=== PATIENT | male | born 1950 | race African-American/Black ===

== ENCOUNTER 2018-09-02 17:27 | Observation (INO) ==
[2018-09-02] MEDS ORDERED: ASPIRIN PO ONE (17:40)
[2018-09-02] MEDS ORDERED: SOLU-MEDROL IV ONE (17:41)
[2018-09-02] MEDS ORDERED: DUONEB (A & A) INH ONE (17:50)
[2018-09-02 17:58] LABS: BASO# 0.01 X1000 (0.0-0.2); BASO% 0.1 % (0.0-0.8); EOS% 1.2 % (0.0-10.0); HEMATOCRIT 42.8 % (42.0-52.0); HEMOGLOBIN 14.2 g/dL (14.0-18.0); IMM GRAN# 0.02 X1000 (0.0-0.04); IMM GRAN% 0.2 % (0.0-0.5); LYMPH% 38.6 % (20.5-51.1); MCH 32.1 PG (27-31); MCHC 33.2 g/dL (33-37); MCV 96.8 FL (81-99); MONO# 0.77 X1000 (0.11-0.59); MONO% 9.6 % (1.7-9.3); MPV 9.9 FL (7.4-10.4); NEUT# 4.04 X1000 (1.4-6.5); NEUT% 50.3 % (42.2-75.2); PLT 176 X1000 (130-400); RBC 4.42 XMIL (4.7-6.1); RDW 16.1 % (11.5-14.5); WBC 8.04 X1000 (4.8-10.8)
--- NOTE | 2018-09-02 18:00 | PROVIDER DOCUMENTATION ---
This chart was entered by Catarina Bedoya Scribe, acting as scribe for Salvatore Monaco MD. HPI-Chest Pain - General Source: patient, family - History of Present Illness-CP Location: reports: other (left side) Chest Pain Radiation: reports: no radiation Quality of Pain: reports: aching Severity in ED: mild Onset/Duration: 3 days ago Timing: still present Context/Activities at Onset: reports: light activity Modifying Factors: improves with: nothing Associated Symptoms: reports: shortness of breath Similar Symptoms Previously?: Yes Recently Seen Here or By Another Healthcare Provider: Yes <Salvatore Monaco - Last Filed: 09/02/18 18:44> <Micha Munguia - Last Filed: 09/02/18 22:14> - General Chief Complaint: Chest Pain Stated Complaint: BP HIGH Time Seen by Provider: 09/02/18 17:38 Allergies/Adverse Reactions: Patient Allergies Allergy/AdvReac Type Severity Reaction Status Date / Time No Known Allergies Allergy Verified 09/02/18 18:38 Home Medications: Home Medication List Medication Instructions Recorded Confirmed Last Taken Type Aspirin 325 mg PO DAILY #0 tablet 10/23/12 12/31/17 03/18/16 11:00 Rx Carvedilol [Coreg] 6.25 mg PO BID #0 tablet 10/23/12 12/31/17 03/18/16 11:00 Rx Isosorbide Mononitrate E.r. [Imdur] 15 mg PO DAILY #30 tablet 10/23/12 12/31/17 03/18/16 11:00 Rx Potassium Chloride 10 meq PO DAILY #30 tablet.er 10/23/12 12/31/17 03/18/16 11: 00 Rx Albuterol 2.5MG/Ipratrop 0.5MG 2 puff INH BID 11/11/14 12/31/17 03/18/16 11:00 History [Duoneb (A & A)] Furosemide [Lasix] 80 mg PO DAILY 02/21/16 12/31/17 03/18/16 11:00 History Ciprofloxacin HCl [Cipro] 500 mg PO BID #14 tab 12/31/17 Unknown Rx Polyethylene Glycol 3350 [Miralax] 17 gm PO DAILY #90 powd.pack 08/07/18 Unknown Rx - History of Present Illness-CP Nature of Presenting Problem: Patient is a 68 year old male who presents to the ED with left side chest pain. Patient's daughter states chest pain started 3 days ago. Patient also states shortness of breath and wheezing. Patient states having 4 breathing treatments with no relief of symptoms. Patient states history of COPD and AR with 6 stents. (Catarina Bedoya) Patient is a 68 year old male who presents to the ED with left side chest pain. Patient's daughter states chest pain started 3 days ago. Patient also states shortness of breath and wheezing. Patient states having 4 breathing treatments with no relief of symptoms. Patient states history of COPD and AR with 6 stents. (Salvatore Monaco) Review of Systems - Adult - REVIEW OF SYSTEMS - ADULT Constitutional: reports: no symptoms reported Eyes: reports: no symptoms reported Ears, Nose, Mouth & Throat: reports: no symptoms reported Cardiovascular: reports: chest pain. denies: heart murmur, irregular heart rate Respiratory: reports: shortness of breath, wheezing. denies: cough Gastrointestinal: reports: no symptoms reported Genitourinary: reports: no symptoms reported Musculoskeletal: reports: no symptoms reported Integumentary: reports: no symptoms reported Neurological: reports: no symptoms reported Psychiatric: reports: no symptoms reported Endocrine: reports: no symptoms reported Hematologic/Lymphatic: reports: no symptoms reported Allergic/Immunologic: reports: no symptoms reported All Other Systems: Reviewed and Negative <Salvatore Monaco - Last Filed: 09/02/18 18:44> Past History - Adult - PAST MEDICAL HISTORY-ADULT Review of Records: reports: Nursing Assessment Review, Medications Reviewed, Social history reviewed & non-contributory. Major Childhood Illnesses: reports: denies history Cardiovascular: reports: cardiac disease, CHF, HTN, hyperlipidemia, AR (x3) Respiratory: reports: denies history Gastrointestinal: reports: denies history Obstetrical/Gynecological: reports: denies history Genitourinary: reports: kidney stones Musculoskeletal: reports: denies history Neurological: reports: CVA Psychiatric: reports: anxiety Endocrine/Immune: reports: thyroid disorder Other Conditions: reports: denies history - PRIOR SURGERIES/PROCEDURES Surgical/Procedure History: reports: cholecystectomy, cardiac stent (x6) - IMMUNIZATION STATUS Childhood Immunizations: See Nurse Assessment Flu Vaccine: See Nurse Assessment - FAMILY HISTORY Family History: reviewed, not pertinent - SOCIAL HISTORY Smoking: cigarettes, less than 1 pack/day Provider spent 3-5 mins advising pt. on dangers of tobacco.: Discussed manners to quit use, and f/u contacts for add'l counseling. Substance Use: denies Living Situation: family <Salvatore Monaco - Last Filed: 09/02/18 18:44> Physical Exam-General - PHYSICAL EXAM-ADULT Initial Vital Signs Reviewed: Yes - CONSTITUTIONAL General Appearance: alert, no apparent distress - HEAD, EARS, NOSE, MOUTH & THROAT HENMT: normal ENT inspection - NECK Neck: normal inspection - RESPIRATORY Respiratory: chest non-tender, lungs clear, normal breath sounds - CARDIOVASCULAR Cardiovascular: normal peripheral pulses, regular rate, rhythm - GASTROINTESTINAL (ABDOMEN) Abdominal Exam: normal bowel sounds, non tender, soft - MUSCULOSKELETAL Extremity: non-tender, normal inspection - SKIN Integumentary: normal color, normal turgor, warm/dry - NEUROLOGIC Neurologic: grossly normal - PSYCHIATRIC Psych/Mental Status: normal mood/affect, oriented x 3 <Salvatore Monaco - Last Filed: 09/02/18 18:44> Progress - PLAN OF CARE/RESULTS Result Diagrams: 09/02/18 17:50 - REASSESSMENT Reassessment #1 Time Reassessed: 18:45 Status: improving (SYMPTOMS IMPROVED. LUNGS STILL DIFFUSE BILAT WHEEZING) - EKG 1 Time of EKG reading by physician:: 17:52 EKG Read and Signed by:: Salvatore Monaco EKG Interpretation (*Must complete 3 of following elements*): Abnormal ( moderate voltage criteria for LVH, may be normal variant.) Rate: 73 Rhythm: normal sinus rhythm QRS: RBB NC Interval: normal Comments: left anterior fascicular block; bifascicular block; - CHANGE OF SHIFT REPORT (ED Provider) Report Given and Care Transferred to:: DR MUNGUIA Time of Transfer: 19:00 Items Pending: Labs, XRAY Results, CT/MRI Results <Salvatore Monaco - Last Filed: 09/02/18 18:44> - PLAN OF CARE/RESULTS Result Diagrams: 09/02/18 17:50 09/02/18 18:48 - CONSULTS/PCP/HOSPITALIST Notification #1 *Consult/PCP/Hospitalist*: Dr Ortega Time Discussed: 22:14 Consult Disposition: Admit <EzraMicha Brijesh - Last Filed: 09/02/18 22:14> - PLAN OF CARE/RESULTS Progress/Plan/Lab Results: Vital Signs - 8 hr 09/02/18 17:33 09/02/18 18:13 09/02/18 18:41 Temperature 98 F Pulse Rate 77 76 76 Respiratory Rate 18 18 20 Blood Pressure 197/102 173/101 O2 Sat by Pulse Oximetry 96 96 94 L Laboratory Results - last 24 hr 09/02/18 09/02/18 09/02/18 17:50 17:50 17:50 WBC 8.04 RBC 4.42 L Hgb 14.2 Hct 42.8 MCV 96.8 MCH 32.1 H MCHC 33.2 RDW Std Deviation 16.1 H Plt Count 176 MPV 9.9 Immature Gran % (Auto) 0.2 Neut % (Auto) 50.3 Lymph % (Auto) 38.6 [place] % (Auto) 9.6 H Eos % (Auto) 1.2 Baso % (Auto) 0.1 Immature Gran # (Auto) 0.02 Neut # (Auto) 4.04 Lymph # (Auto) 3.10 [place] # (Auto) 0.77 H Eos # (Auto) 0.10 Baso # (Auto) 0.01 PT 12.4 INR 0.88 D-Dimer, Quantitative 1.18 H Sodium Potassium Chloride Carbon Dioxide Anion Gap BUN Creatinine Estimated GFR/1.73 m2 BUN/Creatinine Ratio Glucose Calculated Osmolality Calcium Magnesium Total Bilirubin AST ALT Alkaline Phosphatase Creatine Kinase Troponin T [id number]-[id number]-[id number] Pept Total Protein Albumin Globulin Albumin/Globulin Ratio 09/02/18 09/02/18 09/02/18 18:48 18:48 18:48 WBC RBC Hgb Hct MCV MCH MCHC RDW Std Deviation Plt Count MPV Immature Gran % (Auto) Neut % (Auto) Lymph % (Auto) [place] % (Auto) Eos % (Auto) Baso % (Auto) Immature Gran # (Auto) Neut # (Auto) Lymph # (Auto) [place] # (Auto) Eos # (Auto) Baso # (Auto) PT INR D-Dimer, Quantitative Sodium 137 Potassium 4.3 Chloride 103 Carbon Dioxide 23 L Anion Gap 12 BUN 14 Creatinine 1.0 Estimated GFR/1.73 m2 > 60 BUN/Creatinine Ratio 14 Glucose 93 Calculated Osmolality 274 Calcium 9.4 Magnesium 1.9 Total Bilirubin < 0.15 L AST 12 ALT 10 Alkaline Phosphatase 63 Creatine Kinase 75 Troponin T < 0.010 Rcv-[id number]-Kxpgmzlymih Pept Total Protein 6.8 Albumin 3.8 Globulin 3.0 Albumin/Globulin Ratio 1.0 09/02/18 18:48 WBC RBC Hgb Hct MCV MCH MCHC RDW Std Deviation Plt Count MPV Immature Gran % (Auto) Neut % (Auto) Lymph % (Auto) [place] % (Auto) Eos % (Auto) Baso % (Auto) Immature Gran # (Auto) Neut # (Auto) Lymph # (Auto) [place] # (Auto) Eos # (Auto) Baso # (Auto) PT INR D-Dimer, Quantitative Sodium Potassium Chloride Carbon Dioxide Anion Gap BUN Creatinine Estimated GFR/1.73 m2 BUN/Creatinine Ratio Glucose Calculated Osmolality Calcium Magnesium Total Bilirubin AST ALT Alkaline Phosphatase Creatine Kinase Troponin T [id number]-Lljaajjjzgh Pept 300 H Total Protein Albumin Globulin Albumin/Globulin Ratio Orders Category Date Time Status Cardiac Monitoring DIRECTED Care 09/02/18 17:38 Active Oxygen Therapy- ED Nursing DIRECTED Care 09/02/18 18:42 Active CHEST-PORTABLE [RAD] Stat Exams 09/02/18 17:38 Completed CTA [CT ANGIOGRM PULMONARY ARTERIES] [CT] Stat Exams 09/02/18 18:37 Completed CBC WITH DIFF [HEME] Stat Lab 09/02/18 17:50 Completed CK PROFILE [SP CHEM] Stat Lab 09/02/18 18:48 Completed COMPREHENSIVE METABOLIC PANEL [CHEM] Stat Lab 09/02/18 18:48 Completed D-DIMER [COAG] Stat Lab 09/02/18 17:50 Completed MAGNESIUM [CHEM] Stat Lab 09/02/18 18:48 Completed PRO B-NATRIURETIC PEPTIDE Stat Lab 09/02/18 18:48 Completed PROTIME WITH INR [COAG] Stat Lab 09/02/18 17:50 Completed TROPONIN T Stat Lab 09/02/18 18:48 Completed Albuterol 2.5MG/Ipratrop 0.5MG [Duoneb (A & A)] Med 09/02/18 17:50 Discontinued 3 ml INH NOW ONE Aspirin Med 09/02/18 17:40 Discontinued 325 mg PO NOW ONE Methylprednisolone Sod Succ [Solu-Medrol] Med 09/02/18 17:41 Discontinued 125 mg IV STAT ONE Aerosol Treatments Routine Oth 09/02/18 17:50 Completed Aerosol Treatments Stat Oth 09/02/18 17:50 Completed EKG [EKG] Stat Ther 09/02/18 17:42 Draft Departure - Departure Date of Disposition Decision: 09/02/18 Time of Disposition Decision: 19:00 Certified Medical Emergency: Emergent - Critical Care Note This patient required my direct & personal management of CC.: No <Salvatore Monaco - Last Filed: 09/02/18 18:44> - Departure Certified Medical Emergency: Emergent - Critical Care Note This patient required my direct & personal management of CC.: No <Micha Munguia - Last Filed: 09/02/18 22:14> - Departure DIAGNOSIS: COPD with exacerbation, Chest pain Disposition: ADMITTED INPATIENT 09 Condition: Stable Referrals and Follow-Ups: Shahzad Fernando MD [Primary Care Provider] - Attestation - Physician/ CAMMY Attestation Patient care was provided by Advanced Practice Provider:: No The physician spent face to face time with patient:: Yes Advanced Practice Provider documentation review:: Supervising physician onsite and consulted in the evaluation and care of this patient. The physician did have a face to face encounter with the patient. <Salvatore Monaco - Last Filed: 09/02/18 18:44> - Physician/ CAMMY Attestation Patient care was provided by Advanced Practice Provider:: No The physician spent face to face time with patient:: Yes Advanced Practice Provider documentation review:: Supervising physician onsite and consulted in the evaluation and care of this patient. The physician did have a face to face encounter with the patient. <Micha Munguia - Last Filed: 09/02/18 22:14> This chart was documented by the indicated scribe, (Catarina Bedoya Scribe) and accurately reflects the services I performed and decisions made by , Salvatore Monaco MD, as attested by the provider's signature.
--- NOTE | 2018-09-02 18:01 | EKG Report ---
Test Performed on : 09/02/2018 5:50:04 PM Test Reason : CHEST PAIN Blood Pressure : / mmHG Vent. Rate : 075 BPM Atrial Rate : 075 BPM P-R Int : 134 ms QRS Dur : 136 ms QT Int : 418 ms P-R-T Axes : 085 -84 037 degrees QTc Int : 466 ms Normal sinus rhythm. Right bundle branch block Left anterior fascicular block Bifascicular block Moderate voltage criteria for LVH, may be normal variant Abnormal ECG When compared with ECG of 31-DEC-2017 16:28, (Unconfirmed) Minimal criteria for Septal infarct are no longer present T wave inversion no longer evident in Anterior leads Unconfirmed Result
[2018-09-02 18:18] LABS: INR 0.88; PROTIME 12.4 Seconds (11.0-16.0)
[2018-09-02 19:36] LABS: AGAP 12; ALBUMIN 3.8 g/dL (3.5-5.0); ALKALINE PHOSPHATASE 63 U/L (32-122); BUN 14 mg/dL (8-22); CALCIUM 9.4 mg/dL (8.8-10.2); CHLORIDE 103 mmol/L (98-107); COSMO 274; ESTIMATED GFR > 60; GLUCOSE 93 mg/dL (70-104); GOT 12 U/L (10-34); GPT 10 U/L (10-44); MAGNESIUM 1.9 mg/dL (1.5-2.7); POTASSIUM 4.3 mmol/L (3.5-5.1); SODIUM 137 mmol/L (136-145); TCO2 23 mmol/L (25-35); TOTAL BILIRUBIN < 0.15 mg/dL (0.20-1.00); TOTAL PROTEIN 6.8 g/dL (6.3-8.3)
--- NOTE | 2018-09-02 19:43 | Diag Imaging Result Doc PS360 ---
EXAM: CHEST-PORTABLE INDICATION: chest pain TECHNIQUE: One view COMPARISON: 03/16/2018 FINDINGS: There is mild increased opacity at the lung bases, more prominent on the right. This could represent developing infiltrates but may also be due to overlying soft tissue attenuation. Otherwise, the lungs are grossly clear. There is no discrete pleural fluid collection or pneumothorax. There are calcified mediastinal lymph nodes indicating prior granulomatous disease. The cardiomediastinal silhouette and central vasculature are grossly unremarkable, otherwise. IMPRESSION: Vague opacity at the lung bases suggesting questionable mild infiltrate. Electronically signed by Kenneth Gonzales 09/02/2018 7:41 PM
--- NOTE | 2018-09-02 20:39 | Diag Imaging Result Doc PS360 ---
EXAM: CT ANGIOGRM PULMONARY ARTERIES INDICATION: SOB TECHNIQUE: This exam was performed using automated exposure control, adjustment of mA or kV according to patient size, and/or use of iterative reconstruction technique. Thin section axial images and 3-D MIPS were obtained. COMPARISON: None. FINDINGS: There is no evidence of pulmonary embolism. There is patchy aortic atherosclerotic calcification. There is no evidence of aortic aneurysm or dissection. There are calcified mediastinal and hilar lymph nodes indicating prior granulomatous disease. There is no cardiomegaly. There is fairly mild pulmonary emphysema. There is mild subsegmental atelectasis and/or scarring at the lung bases. The lungs are grossly clear, otherwise. There is no pleural fluid collection and no pneumothorax. Limited views of the upper abdomen are essentially unremarkable. IMPRESSION: 1.Fairly mild pulmonary emphysema. 2.Mild subsegmental atelectasis and/or scarring at the lung bases. 3.No evidence of pulmonary embolism or other definite acute pathology. Electronically signed by Kenneth Gonzales 09/02/2018 8:36 PM
[2018-09-02] MEDS ORDERED: CATAPRES PO ONE (22:15)
[2018-09-02] MEDS ORDERED: NITROGLYCERIN SL PRN (22:23)
[2018-09-02] MEDS ORDERED: CATAPRES PO PRN (22:24)
[2018-09-02] MEDS ORDERED: ZOFRAN IV PRN (23:19)
[2018-09-02] MEDS: DUONEB (A & A) INH SCH (23:29)
[2018-09-02] MEDS: LOVENOX SUBQ SCH (23:30)
[2018-09-02] MEDS: APRESOLINE IV PRN (23:55)
[2018-09-03] MEDS: PRILOSEC PO SCH (06:02)
--- NOTE | 2018-09-03 06:09 | EKG Report ---
Test Performed on : 09/03/2018 05:57:20 AM Test Reason : chest pain Blood Pressure : / mmHG Vent. Rate : 080 BPM Atrial Rate : 080 BPM P-R Int : 148 ms QRS Dur : 138 ms QT Int : 418 ms P-R-T Axes : 087 -86 -26 degrees QTc Int : 482 ms Normal sinus rhythm. Right bundle branch block Left anterior fascicular block Bifascicular block Moderate voltage criteria for LVH, may be normal variant Cannot rule out Septal infarct , age undetermined Abnormal ECG When compared with ECG of 02-SEP-2018 17:50, (Unconfirmed) T wave inversion now evident in Inferior leads Nonspecific T wave abnormality, worse in Lateral leads Confirmed by Theo Waters MD ([id number]) on 09/12/2018 9:52:37 AM
[2018-09-03 07:14] LABS: HEMATOCRIT 45.1 % (42.0-52.0); HEMOGLOBIN 14.9 g/dL (14.0-18.0); IMM GRAN# 0.02 X1000 (0.0-0.04); IMM GRAN% 0.4 % (0.0-0.5); LYMPH# 1.32 X1000 (1.2-3.4); LYMPH% 25.4 % (20.5-51.1); MCH 31.4 PG (27-31); MCV 94.9 FL (81-99); MONO# 0.08 X1000 (0.11-0.59); MONO% 1.5 % (1.7-9.3); MPV 9.7 FL (7.4-10.4); NEUT# 3.77 X1000 (1.4-6.5); NEUT% 72.7 % (42.2-75.2); PLT 161 X1000 (130-400); RBC 4.75 XMIL (4.7-6.1); RDW 15.6 % (11.5-14.5); WBC 5.19 X1000 (4.8-10.8)
[2018-09-03 07:24] LABS: AGAP 12; BUN 15 mg/dL (8-22); CALCIUM 10.1 mg/dL (8.8-10.2); CHLORIDE 101 mmol/L (98-107); COSMO 279; CREATININE 0.9 mg/dL (0.7-1.2); ESTIMATED GFR > 60; GLUCOSE 183 mg/dL (70-104); POTASSIUM 4.3 mmol/L (3.5-5.1); SODIUM 137 mmol/L (136-145); TCO2 24 mmol/L (25-35)
--- NOTE | 2018-09-03 07:37 | Diag Imaging Result Doc PS360 ---
EXAM: CHEST-2 VIEWS HISTORY: sob, pna TECHNIQUE: Chest two views COMPARISON: 09/02/2018 FINDINGS: The lungs are hyperexpanded. Increased AP diameter to the chest. The vasculature is less distended. No cardiomegaly. No consolidation. No pleural effusions. The calcified mediastinal nodes. IMPRESSION: Emphysema. No pneumonia. Electronically signed by Sanjiv De La Rosa 09/03/2018 7:35 AM
[2018-09-03] MEDS: DUONEB (A & A) INH SCH ×5 (07:49→22:56)
[2018-09-03] MEDS: MIRALAX PO SCH (09:30)
[2018-09-03] MEDS: IMDUR PO SCH (09:31)
[2018-09-03] MEDS: ASPIRIN PO SCH (09:31)
[2018-09-03] MEDS: KLOR-CON PO SCH (09:31)
[2018-09-03] MEDS: LASIX PO SCH (09:31)
[2018-09-03] MEDS: COREG PO SCH ×2 (09:32→21:17)
[2018-09-03] MEDS: APRESOLINE IV PRN (10:19)
--- NOTE | 2018-09-03 11:38 | HISTORY AND PHYSICAL ---
CHIEF COMPLAINT: Chest pain and shortness of breath. HISTORY OF PRESENT ILLNESS: This is a 62-year-old gentleman with a history of CAD, COPD, and diastolic heart failure. He presents to the emergency room complaining of about 3- 1/2 days of chest pain. He describes this as an aching-type pain just right behind his left breast. He had some associated shortness of breath that was a little more than his normal breathing, that came on with any activity, and it did improve somewhat with rest, but not much. He denied any syncope, dizziness, palpitations, fevers, or chills. PAST MEDICAL HISTORY: Diastolic congestive heart failure with an EF of 60% back in 2013, COPD, CAD with previous coronary events, having multiple stents. He is followed in Cardiology in [place]. Hypothyroid, hypertension. PAST SURGICAL HISTORY: Multiple PTCA, kidney stone removal, and cholecystectomy. SOCIAL HISTORY: He denies alcohol or illicit drug use. He does smoke about half a pack cigarettes a day. ALLERGIES: No known drug allergies. HOME MEDICATIONS: A list will be obtained by the nursing staff and once reviewed, will restart as appropriate. REVIEW OF SYSTEMS: The patient pertinent positives stated in HPI. He denied any syncope, dizziness, any palpitations, a productive cough, any fever, chills, any night sweats, any nausea, vomiting, diarrhea, constipation, black or bloody vomitus or stools, hematuria, dysuria, frequency, or urgency. PHYSICAL EXAMINATION: GENERAL: This is a 68-year-old gentleman, who is sitting up in the bed in no distress. VITAL SIGNS: Blood pressure is 149/83 with a heart rate of 84, respirations 20, temperature is 97.7 oral with O2 saturation that are 96% to 98% on 2 L nasal cannula. EYES: Pupils equal, round, react to light. EOMs are intact. Sclerae are anicteric. HENT: Head is normocephalic, atraumatic. Mucous membranes are moist. NECK: Supple. Trachea midline. CARDIOVASCULAR: Regular rate and rhythm. S1, S2 appreciated. No murmurs. He has no lower extremity edema with peripheral pulses palpable x4 extremities. PULMONARY: Breath sounds with wheezes scattered throughout. Chest rises and falls symmetrically with respiration. He has no increased work of breathing. GASTROINTESTINAL: Abdomen is soft, nontender, and nondistended with bowel sounds in all 4 quadrants. NEUROLOGIC: He is alert and oriented x3. SKIN: Warm and dry. LABS: WBC is 8 with hemoglobin 14.2, hematocrit 42.8, platelets of 176,000. D-dimer is 1.18. Sodium is 137, potassium 4.3, BUN 14, creatinine 1 with a glucose of 93. Troponins were negative on multiple occasions with a proBNP of 300. Chest x-ray revealed hyperexpanded lungs with increased AP diameter of the chest. Vasculature is less congested. With compared to 09/02/2018 x- ray, no consolidation, no pleural effusions, and no pneumonia. EKG reveals sinus rhythm with a right bundle-branch block and left anterior-fascicular block at a rate of 80. ASSESSMENT AND PLAN: 1. Chest pain. He has ruled out by enzymes. Will continue his home medications. We will continue telemetry. 2. Chronic obstructive pulmonary disease acute exacerbation. We will continue DuoNeb q.4 hours and q.2 hours p.r.n. Will give steroids to taper. Will continue home medications. 3. Elevated D-dimer. CTA pulmonary was negative for pulmonary embolus. We will check a lower extremity Doppler. 4. History of congestive heart failure, diastolic. He does not appear to be in exacerbation. We will continue to monitor. Continue his home medications. 5. History of hypertension. Blood pressures were initially in the 190s/100. They have decreased to 140s to 190s over 80s to 90s. We will continue his home medications and monitor. 6. Hypothyroid. We will check a TSH. 7. Further treatments pending hospital course. Dictated by DINA Toledo for Makayla Babcock MD This chart was documented by, DINA Toledo and accurately reflects the services performed, treatment plan and medical decisions as attested by the providers signature Makayla Babcock MD. cc: DINA Toledo MD
--- NOTE | 2018-09-03 13:01 | Extremity Venous Study ---
EXAM: Venous U/S Bilateral Legs HISTORY: elevated ddimer TECHNIQUE: Cho scale, color Doppler, and duplex evaluation was performed. COMPARISON: None. FINDINGS: The deep veins of the bilateral lower extremities demonstrate appropriate compressibility and augmentation. No intraluminal thrombus is visualized. There is no evidence for DVT. The superficial veins appear patent. IMPRESSION: No evidence for deep venous thrombosis bilateral lower extremities. Electronically signed by Hayley Ruiz 09/03/2018 12:59 PM
--- NOTE | 2018-09-03 14:29 | HISTORY AND PHYSICAL ---
ADDENDUM: The patient was seen by me [id number], and I fully agree with the assessment and plan of my nurse practitioner, Lydia Diallo. This is a 68-year-old gentleman who has been admitted with some chest discomfort along with acute COPD exacerbation, chronic diastolic congestive heart failure, and dyslipidemia. The patient will be kept here, and we will rule out acute myocardial ischemic event with serial cardiac enzymes. He will get bronchodilators via nebulization, and we will also give him enoxaparin 40 mg subcutaneously for thromboembolism prophylaxis. We are going to continue his routine home medications and follow the hospital course. cc: Makayla Babcock MD
[2018-09-03] MEDS ORDERED: NORCO-5 PO ONE (17:05)
[2018-09-03] MEDS: LOVENOX SUBQ SCH (23:00)
[2018-09-04 06:13] LABS: BASO# 0.01 X1000 (0.0-0.2); BASO% 0.1 % (0.0-0.8); EOS# 0.01 X1000 (0.0-0.7); EOS% 0.1 % (0.0-10.0); HEMATOCRIT 42.5 % (42.0-52.0); HEMOGLOBIN 14.1 g/dL (14.0-18.0); IMM GRAN# 0.04 X1000 (0.0-0.04); IMM GRAN% 0.4 % (0.0-0.5); LYMPH# 1.86 X1000 (1.2-3.4); LYMPH% 17.7 % (20.5-51.1); MCH 31.1 PG (27-31); MCHC 33.2 g/dL (33-37); MCV 93.6 FL (81-99); MONO# 1.09 X1000 (0.11-0.59); MONO% 10.4 % (1.7-9.3); MPV 10.1 FL (7.4-10.4); NEUT# 7.51 X1000 (1.4-6.5); NEUT% 71.3 % (42.2-75.2); PLT 164 X1000 (130-400); RBC 4.54 XMIL (4.7-6.1); RDW 15.7 % (11.5-14.5); WBC 10.52 X1000 (4.8-10.8)
[2018-09-04] MEDS: PRILOSEC PO SCH (06:17)
[2018-09-04 06:34] LABS: AGAP 13; BUN 24 mg/dL (8-22); CALCIUM 9.7 mg/dL (8.8-10.2); CHLORIDE 101 mmol/L (98-107); COSMO 279; CREATININE 0.9 mg/dL (0.7-1.2); ESTIMATED GFR > 60; GLUCOSE 119 mg/dL (70-104); SODIUM 137 mmol/L (136-145); TCO2 24 mmol/L (25-35)
[2018-09-04] MEDS: DUONEB (A & A) INH SCH ×5 (07:46→22:52)
[2018-09-04] MEDS: ASPIRIN PO SCH (09:03)
[2018-09-04] MEDS: COREG PO SCH ×2 (09:03→21:46)
[2018-09-04] MEDS: COZAAR PO SCH (09:03)
[2018-09-04] MEDS: IMDUR PO SCH (09:03)
[2018-09-04] MEDS: KLOR-CON PO SCH (09:03)
[2018-09-04] MEDS: LASIX PO SCH (09:03)
[2018-09-04] MEDS: MIRALAX PO SCH (09:04)
--- NOTE | 2018-09-04 09:54 | ECHO REPORT ---
ORDER DATE: 09/02/2018 INTERPRETING PHYSICIAN: Yony Ferraro MD INDICATION: A 68-year-old male with chest pain. M-MODE MEASUREMENTS: Left ventricle end diastole: 4.7 cm. Left ventricle end systole: 3.1 cm. Posterior wall: 1.7 cm. Interventricular septum: 1.7 cm. Left atrium: 3.9 cm. Aortic root: 3.3 cm. SUMMARY OF 2-DIMENSIONAL IMAGIN. Left ventricular function is normal. Ejection fraction is estimated at 60%. No wall motion abnormality is noted. 2. The right ventricle is normal. 3. The aortic valve looks normal. Color flow mapping is unremarkable. 4. The mitral valve shows a mild degree of regurgitation. 5. Pulse wave Doppler of mitral inflow shows reversal of the E and the A ratio. Ratio is 0.5. 6. Tissue Doppler of septal and lateral mitral annulus averages 4 cm. 7. There is impaired left ventricular relaxation. 8. The tricuspid valve shows a mild degree of regurgitation. 9. Pulmonary pressure is estimated at 42 mmHg. 10.The pulmonic valve looks normal. Color flow mapping is unremarkable. 13.There is no pericardial effusion and no sign of thrombus. SUMMARY: Clinical correlation is recommended. cc: MD Anurag Pinto MD
--- NOTE | 2018-09-04 11:58 | PROGRESS NOTE ---
DATE: 09/04/2018 SUBJECTIVE: The patient denies having any acute complaints this morning and feels well. He is no longer having any more chest pains. OBJECTIVE: Vital Signs: Temperature 98.1, pulse 68 per minute, respiratory rate 20 per minute, blood pressure 177/93, pulse ox 97% on 2 L of oxygen. Cardiovascular System: First and second heart sounds are audible without any murmurs or gallops. Respiratory System: No respiratory distress noted. Bilateral lung air entry is good without any rales or rhonchi. Gastrointestinal: Abdomen is soft and nondistended. Normal bowel sounds are present. DIAGNOSTIC DATA: CBC and basic metabolic panel both are nondiagnostic. IMPRESSION: 1. Chest pain with negative cardiac enzymes. 2. Chronic obstructive pulmonary disease exacerbation. 3. Uncontrolled hypertension. 4. Chronic diastolic congestive heart failure that is stable. 5. History of coronary artery disease and dyslipidemia. PLAN: The patient has been having uncontrolled hypertension because of which I am going to start him on losartan 50 mg daily. He presented with chest pain but his enzymes have been negative and acute myocardial ischemic event has been ruled out. Furthermore, he has not been having any more chest pains. It seems that his chest discomfort was primarily secondary to chronic obstructive pulmonary disease exacerbation that has now improved. We will continue with bronchodilators via nebulization. His coronary artery disease and chronic diastolic congestive heart failure along with dyslipidemia have been stable, and we are going to continue with his routine medications. Further recommendations will be given as per hospital course. DISPOSITION: Disposition will be most likely in the next 1 to 2 days if his blood pressure gets better and he remains asymptomatic. cc: Makayla Babcock MD
[2018-09-04] MEDS: LOVENOX SUBQ SCH (23:12)
[2018-09-05] MEDS: PRILOSEC PO SCH (06:21)
[2018-09-05 07:10] LABS: BASO# 0.01 X1000 (0.0-0.2); BASO% 0.1 % (0.0-0.8); EOS# 0.03 X1000 (0.0-0.7); EOS% 0.3 % (0.0-10.0); HEMATOCRIT 43.5 % (42.0-52.0); HEMOGLOBIN 14.4 g/dL (14.0-18.0); IMM GRAN# 0.03 X1000 (0.0-0.04); IMM GRAN% 0.3 % (0.0-0.5); LYMPH# 2.66 X1000 (1.2-3.4); LYMPH% 25.8 % (20.5-51.1); MCH 31.3 PG (27-31); MCHC 33.1 g/dL (33-37); MCV 94.6 FL (81-99); MONO# 1.37 X1000 (0.11-0.59); MONO% 13.3 % (1.7-9.3); MPV 10.1 FL (7.4-10.4); NEUT# 6.22 X1000 (1.4-6.5); NEUT% 60.2 % (42.2-75.2); PLT 162 X1000 (130-400); RDW 15.8 % (11.5-14.5); WBC 10.32 X1000 (4.8-10.8)
[2018-09-05] MEDS: DUONEB (A & A) INH SCH ×2 (07:45→11:06)
[2018-09-05 07:54] LABS: AGAP 12; BUN 28 mg/dL (8-22); CALCIUM 9.6 mg/dL (8.8-10.2); CHLORIDE 101 mmol/L (98-107); COSMO 280; ESTIMATED GFR > 60; GLUCOSE 104 mg/dL (70-104); SODIUM 137 mmol/L (136-145); TCO2 24 mmol/L (25-35)
[2018-09-05] MEDS: LASIX PO SCH (09:09)
[2018-09-05] MEDS: MIRALAX PO SCH (09:09)
[2018-09-05] MEDS: IMDUR PO SCH (09:09)
[2018-09-05] MEDS: COREG PO SCH (09:09)
[2018-09-05] MEDS: KLOR-CON PO SCH (09:10)
[2018-09-05] MEDS: ASPIRIN PO SCH (09:10)
[2018-09-05] MEDS: COZAAR PO SCH (09:10)
[2018-09-05 11:34] VITALS: BP 157/88
[2018-09-05] MEDS ORDERED: PRAVACHOL PO SCH (21:00)
--- NOTE | 2018-09-05 21:09 | DISCHARGE SUMMARY ---
ADMISSION DATE: 09/02/2018 DISCHARGE DATE: 09/05/2018 DISCHARGE DIAGNOSES: 1. Acute chronic obstructive pulmonary disease exacerbation. 2. Atypical chest pain with acute myocardial ischemia ruled out. 3. Chronic diastolic congestive heart failure. 4. History of coronary artery disease. 5. Dyslipidemia. 6. Hypertension. HOSPITAL COURSE: Mr. Lopez is a 68-year-old gentleman who was admitted to the hospital after he presented to the emergency department with 3-1/2 days of chest pain. He was diagnosed as having acute COPD exacerbation and was admitted to the hospital for further care. He had negative cardiac enzymes and therefore acute myocardial ischemia was ruled out. He did receive bronchodilators via nebulization and also got steroids with which his condition improved. He also was continued with his routine home medications and losartan 50 mg daily was added to his medicines because of uncontrolled blood pressure. His overall condition has improved and therefore he is going to be discharged home today. DISCHARGE MEDICATIONS: 1. Aspirin 325 mg orally once daily. 2. Albuterol and Atrovent nebulization treatments 4 times a day. 3. Pravastatin 40 mg orally once daily at bedtime. 4. Furosemide 80 mg orally once daily in the morning. 5. Potassium chloride 10 mg orally once daily. 6. Imdur 30 mg orally once daily. 7. Losartan 50 mg orally once daily. 8. Coreg 6.25 mg orally twice daily. 9. MiraLAX 17 g orally once daily as directed. 10. Omeprazole 40 mg orally twice daily. FOLLOWUP: He will follow up with his PCP in approximately one week. CONDITION: Stable. DISPOSITION: Home. cc: Makayla Babcock MD
== END 2018-09-05 14:22 | disposition home or self-care (01) | DRG 191 ==
LOC: P.ED 17:27 → SUATTDRO 23:29 → P.MEDSURG 23:29 → INTOOBSV 23:29
PROVIDERS: ATTEND Internal Medicine
CPT/HCPCS: 71010; 71020; 71045; 71046; 71275; 80048; 80053; 82550; 82948; 83735; 83880; 84443; 84484; 85025; 85379; 85610; 87040; 87070; 87205; 93005; 93010; 93306; 93970; 94640; 94761; 96372; 96374; 97116; 97161; 99285; A9270; J0360; J1650; J2930; Q9967; XXXXX

== ENCOUNTER 2019-08-11 06:48 | Inpatient (IN) ==
[2019-08-11] MEDS ORDERED: DUONEB (A & A) INH ONE (07:23)
[2019-08-11] MEDS ORDERED: SOLU-MEDROL IV ONE (07:23)
--- NOTE | 2019-08-11 08:04 | Diag Imaging Result Doc PS360 ---
EXAM: CHEST-1 VIEW 08/11/2019 HISTORY: possible pneumonia TECHNIQUE: Erect AP portable at 0752 COMMENT: There is no evidence of acute cardiac or pulmonary disease. Compared to 04/24/2019 there has been no significant change. IMPRESSION: No evidence of acute disease. Electronically signed by John Mcleod 08/11/2019 8:01 AM
--- NOTE | 2019-08-11 08:05 | EKG Report ---
Test Performed on : 08/11/2019 07:45:27 AM Test Reason : sob Blood Pressure : / mmHG Vent. Rate : 084 BPM Atrial Rate : 084 BPM P-R Int : 162 ms QRS Dur : 138 ms QT Int : 410 ms P-R-T Axes : 066 -83 009 degrees QTc Int : 484 ms Normal sinus rhythm. Right bundle branch block Left anterior fascicular block Bifascicular block Abnormal ECG When compared with ECG of 25-APR-2019 01:15, Nonspecific T wave abnormality has replaced inverted T waves in Inferior leads Nonspecific T wave abnormality, improved in Lateral leads Unconfirmed Result
[2019-08-11 08:06] LABS: BASO# 0.02 X1000 (0.0-0.2); BASO% 0.3 % (0.0-0.8); EOS# 0.08 X1000 (0.0-0.7); EOS% 1.2 % (0.0-10.0); HEMATOCRIT 39.8 % (42.0-52.0); HEMOGLOBIN 12.6 g/dL (14.0-18.0); LYMPH# 3.08 X1000 (1.2-3.4); LYMPH% 45.1 % (20.5-51.1); MCH 31.7 PG (27-31); MCHC 31.7 g/dL (33-37); MONO# 0.65 X1000 (0.11-0.59); MONO% 9.5 % (1.7-9.3); MPV 9.9 FL (7.4-10.4); NEUT% 43.9 % (42.2-75.2); PLT 181 X1000 (130-400); RBC 3.98 XMIL (4.7-6.1); RDW 16.2 % (11.5-14.5); WBC 6.83 X1000 (4.8-10.8)
[2019-08-11 08:37] LABS: AGAP 14; ALB/GLOB RATIO 1.4; ALKALINE PHOSPHATASE 53 U/L (32-122); BUN 20 mg/dL (8-22); CALCIUM 9.4 mg/dL (8.8-10.2); CHLORIDE 97 mmol/L (98-107); COSMO 280; CREATININE 1.4 mg/dL (0.7-1.2); ESTIMATED GFR > 60; GLUCOSE 98 mg/dL (70-104); GOT 12 U/L (10-34); GPT 8 U/L (10-44); SODIUM 139 mmol/L (136-145); TCO2 28 mmol/L (25-35); TOTAL BILIRUBIN 0.22 mg/dL (0.20-1.00); TOTAL PROTEIN 6.8 g/dL (6.3-8.3)
--- NOTE | 2019-08-11 09:28 | PROVIDER DOCUMENTATION ---
HPI-Respiratory General - General Chief Complaint: General Adult Stated Complaint: COPD Time Seen by Provider: 08/11/19 06:57 Source: patient, family Allergies/Adverse Reactions: Patient Allergies Allergy/AdvReac Type Severity Reaction Status Date / Time No Known Allergies Allergy Verified 08/11/19 07:02 Home Medications: Home Medication List Medication Instructions Recorded Confirmed Last Taken Type Potassium Chloride 10 meq PO DAILY #30 tablet.er 10/23/12 08/11/19 08/10/19 09:00 Rx Furosemide [Lasix] 80 mg PO HS 02/21/16 08/11/19 08/10/19 20:00 History Albuterol 2.5MG/Ipratrop 0.5MG 3 ml INH PRN PRN 09/03/18 08/11/19 3 Weeks Ago History [Duoneb (A & A)] ~07/21/19 Omeprazole [Prilosec] 40 mg PO DAILY 09/03/18 08/11/19 08/10/19 20:00 History PRAVAstatin [Pravachol] 80 mg PO QHS 09/03/18 08/11/19 08/10/19 20:00 History Isosorbide Mononitrate E.r. [Imdur] 30 mg PO DAILY #30 tab 09/05/18 08/11/19 08/10/19 09:00 Rx Albuterol [Albuterol Neb] 2.5 mg INH TID 08/08/19 08/11/19 08/10/19 20:00 History Aspirin 81 mg PO DAILY 08/08/19 08/11/19 08/03/19 History Clopidogrel Bisulfate [Plavix] 75 mg PO DAILY 08/08/19 08/11/19 08/03/19 History Nitroglycerin [Nitrostat] 0.4 mg SUBLINGUAL PRN PRN 08/08/19 08/11/19 3 Months Ago History ~05/11/19 Carvedilol [Coreg] 25 mg PO BID 08/11/19 08/11/19 Unknown History Pentoxifylline E.r. [Trental] 400 mg PO TID 08/11/19 08/11/19 Unknown History - History of Present Illness-Resp Nature of Presenting Problem: 69 y/o BM sent to ER from surgery due to Dr Shrestha noting that pt was having SOB and wheezing quite a bit. Dr Shrestha was concerned that pt could have flair up of his COPD or possible pneumonia. quality eng notes that his room air sats at home have been dropping into 70s. Pt does not wear oxygen at home. In exam room pt is calm and denies any CP or significant SOB. Quality of Pain: reports: none Severity in ED: reports: moderate Onset/Duration: reports: 1-3 hours ago Timing: reports: still present Context: reports: other (copd exacerbation) Exposure: reports: unknown cause Cough Quality/Degree: reports: no cough Episode Frequency: occasional episodes Current Respiratory Medication Therapy: Initiated see nurses note Modifying Factors: improves with: albuterol nebulizer Associated Symptoms: reports: shortness of breath. denies: chest pain/soreness Similar Symptoms Previously?: Yes Recently seen or treated by another doctor?: Yes Review of Systems - Adult - REVIEW OF SYSTEMS - ADULT Constitutional: reports: no symptoms reported, see HPI Eyes: reports: no symptoms reported, see HPI Ears, Nose, Mouth & Throat: reports: no symptoms reported, see HPI Cardiovascular: reports: no symptoms reported, see HPI Respiratory: reports: see HPI, shortness of breath, wheezing Gastrointestinal: reports: no symptoms reported, see HPI Genitourinary: reports: no symptoms reported, see HPI Musculoskeletal: reports: no symptoms reported, see HPI Integumentary: reports: no symptoms reported, see HPI Neurological: reports: no symptoms reported, see HPI Psychiatric: reports: no symptoms reported, see HPI Endocrine: reports: no symptoms reported, see HPI Hematologic/Lymphatic: reports: no symptoms reported, see HPI Allergic/Immunologic: reports: no symptoms reported, see HPI All Other Systems: Reviewed and Negative Past History - Adult - PAST MEDICAL HISTORY-ADULT Review of Records: reports: Nursing Assessment Review, Medications Reviewed, Social history reviewed & non-contributory. Major Childhood Illnesses: reports: denies history Cardiovascular: reports: cardiac disease, CHF, HTN, hyperlipidemia, AR (x3) Respiratory: reports: asthma, COPD Gastrointestinal: reports: GERD Obstetrical/Gynecological: reports: denies history Genitourinary: reports: kidney disease, kidney stones Musculoskeletal: reports: denies history Neurological: reports: CVA, TIA Psychiatric: reports: anxiety Endocrine/Immune: reports: thyroid disorder Other Conditions: reports: denies history - PRIOR SURGERIES/PROCEDURES Surgical/Procedure History: reports: cholecystectomy, cardiac stent (x6) - IMMUNIZATION STATUS Childhood Immunizations: See Nurse Assessment Flu Vaccine: See Nurse Assessment - FAMILY HISTORY Family History: reviewed, not pertinent Physical Exam-General - PHYSICAL EXAM-ADULT Initial Vital Signs Reviewed: Yes - CONSTITUTIONAL General Appearance: appears well, alert, no apparent distress - EYES Eyes: PERRL/EOMI - HEAD, EARS, NOSE, MOUTH & THROAT HENMT: normocephalic/atraumatic, moist mucous membranes - NECK Neck: non-tender, full range of motion, supple, normal inspection - RESPIRATORY Respiratory: chest non-tender, normal breath sounds, no pleuratic chest pain, no respiratory distress, no accessory muscle use, wheezing - CARDIOVASCULAR Cardiovascular: normal peripheral pulses, regular rate, rhythm, no edema, no gallop, no JVD, no murmur - GASTROINTESTINAL (ABDOMEN) Abdominal Exam: normal bowel sounds, non tender, soft, no organomegaly, no pulsatile mass - LYMPHATIC Lymphatic: no adenopathy - MUSCULOSKELETAL Back Exam: normal inspection, no CVA tenderness, no vertebral tenderness Extremity: normal range of motion, non-tender, normal gait, normal inspection, no pedal edema, no calf tenderness, normal capillary refill - SKIN Integumentary: normal color, normal turgor - NEUROLOGIC Neurologic: casualty insurance claim adjuster II-XII nml as tested, grossly normal, no motor/sensory deficits - PSYCHIATRIC Psych/Mental Status: normal mood/affect, normal thought content, normal thought process, oriented x 3 - HEART Score HEART Score: History: Slightly Suspicious HEART Score: ECG: Non-Specific Repolarization Disturbance/LBBB/PM HEART Score: Age: > or = 65 Years HEART Score: Risk Factors for Atherosclerotic Disease: > or = 3 Risk Factors or History of Atherosclerotic Disease HEART Score: Troponin: < or = Normal Limit Total HEART Score:: 5 Progress - PLAN OF CARE/RESULTS Progress/Plan/Lab Results: Vital Signs - 8 hr 08/11/19 06:51 08/11/19 07:04 08/11/19 07:30 Temperature 99.0 F Pulse Rate 89 86 85 Respiratory Rate 19 29 H 18 Blood Pressure 139/85 158/103 O2 Sat by Pulse Oximetry 95 93 L 92 L 08/11/19 07:31 08/11/19 07:41 08/11/19 08:00 Temperature Pulse Rate 85 83 83 Respiratory Rate 16 17 23 Blood Pressure 166/98 O2 Sat by Pulse Oximetry 90 L 93 L 92 L 08/11/19 08:01 08/11/19 08:30 Temperature Pulse Rate 83 72 Respiratory Rate 28 H 25 H Blood Pressure 153/98 176/97 O2 Sat by Pulse Oximetry 93 L 92 L Laboratory Results - last 24 hr 08/11/19 08/11/19 08/11/19 07:50 07:50 07:50 WBC 6.83 RBC 3.98 L Hgb 12.6 L Hct 39.8 L MCV 100.0 H MCH 31.7 H MCHC 31.7 L RDW Std Deviation 16.2 H Plt Count 181 MPV 9.9 Immature Gran % (Auto) 0.0 Neut % (Auto) 43.9 Lymph % (Auto) 45.1 [place] % (Auto) 9.5 H Eos % (Auto) 1.2 Baso % (Auto) 0.3 Immature Gran # (Auto) 0.00 Neut # (Auto) 3.00 Lymph # (Auto) 3.08 [place] # (Auto) 0.65 H Eos # (Auto) 0.08 Baso # (Auto) 0.02 Sodium 139 Potassium 4.0 Chloride 97 L Carbon Dioxide 28 Anion Gap 14 BUN 20 Creatinine 1.4 H Estimated GFR/1.73 m2 > 60 BUN/Creatinine Ratio 14 Glucose 98 Calculated Osmolality 280 Calcium 9.4 Total Bilirubin 0.22 AST 12 ALT 8 L Alkaline Phosphatase 53 Troponin T < 0.010 Kjc-I-Kjxcpurgysi Pept Total Protein 6.8 Albumin 4.0 Globulin 2.8 Albumin/Globulin Ratio 1.4 08/11/19 07:50 WBC RBC Hgb Hct MCV MCH MCHC RDW Std Deviation Plt Count MPV Immature Gran % (Auto) Neut % (Auto) Lymph % (Auto) [place] % (Auto) Eos % (Auto) Baso % (Auto) Immature Gran # (Auto) Neut # (Auto) Lymph # (Auto) [place] # (Auto) Eos # (Auto) Baso # (Auto) Sodium Potassium Chloride Carbon Dioxide Anion Gap BUN Creatinine Estimated GFR/1.73 m2 BUN/Creatinine Ratio Glucose Calculated Osmolality Calcium Total Bilirubin AST ALT Alkaline Phosphatase Troponin T Jfh-R-Oejkzxcrups Pept 192 Total Protein Albumin Globulin Albumin/Globulin Ratio Orders Category Date Time Status CHEST-1 VIEW [RAD] Stat Exams 08/11/19 07:17 Completed ABG [RESP] Routine Lab 08/11/19 09:24 Ordered BNP [PRO B-NATRIURETIC PEPTIDE] Stat Lab 08/11/19 07:50 Completed CBC WITH DIFF [HEME] Stat Lab 08/11/19 07:50 Completed COMPREHENSIVE METABOLIC PANEL [CHEM] Stat Lab 08/11/19 07:50 Completed TROPONIN T Stat Lab 08/11/19 07:50 Completed Albuterol 2.5MG/Ipratrop 0.5MG [Duoneb (A & A)] Med 08/11/19 07:23 Discontinued 3 ml INH NOW ONE Methylprednisolone Sod Succ [Solu-Medrol] Med 08/11/19 07:23 Discontinued 125 mg IV NOW ONE Aerosol Treatments Routine Oth 08/11/19 07:23 Completed Aerosol Treatments Stat Oth 08/11/19 07:23 Completed EKG [EKG] Stat Ther 08/11/19 07:24 Draft Result Diagrams: 08/11/19 07:50 08/11/19 07:50 - EKG 1 Time of EKG reading by physician:: 07:45 EKG Read and Signed by:: Micha Munguia EKG Interpretation (*Must complete 3 of following elements*): Abnormal Rate: 84 Rhythm: nsr Bartley: normal QRS: normal IN Interval: normal ST Wave: normal - CONSULTS/PCP/HOSPITALIST Notification #1 *Consult/PCP/Hospitalist*: Valentina for Hospitalist Time Discussed: 09:32 Consult Disposition: Will see in ED, Admit #2 Consult: Dr Shrestha Time Discussed: 09:20 Reason/Comments: agreed with treatment paln and will reschedule surgery Departure - Departure Date of Disposition Decision: 08/11/19 Time of Disposition Decision: 09:33 DIAGNOSIS: COPD with exacerbation Disposition: ADMITTED INPATIENT 09 Certified Medical Emergency: Emergent Condition: Fair Referrals and Follow-Ups: Shahzad Fernando MD [Primary Care Provider] - - Critical Care Note This patient required my direct & personal management of CC.: No Attestation - Physician/ CAMMY Attestation Patient care was provided by Advanced Practice Provider:: No The physician spent face to face time with patient:: Yes Advanced Practice Provider documentation review:: Supervising physician onsite and consulted in the evaluation and care of this patient. The physician did have a face to face encounter with the patient.
[2019-08-11 09:54] LABS: ALLEN TEST YES; BE 3.9 mmoll (-3.0-3.0); BLOOD TYPE ARTERIAL; HCO3-(ACT) 27.8 mmoll (20.0-26.0); METHB 0.9 % (0.0-1.5); O2(CT) 17.1 mL/dL (15.0-23.0); PCO2(98.6) 42 mmHg (35-45); PO2(98.6) 61 mmHg (60-100); SAMPLE BLOOD; SAO2 94.7 % (95.0-100.0); THB 13.5 g/dL (11.5-17.4); pH(98.6) 7.44 (7.35-7.45)
[2019-08-11 09:55] LABS: MODALITY CANNULA
[2019-08-11] MEDS ORDERED: ZOFRAN IV PRN (10:03)
[2019-08-11] MEDS ORDERED: TYLENOL PO PRN (10:03)
[2019-08-11] MEDS ORDERED: NITROGLYCERIN SL PRN (10:03)
--- NOTE | 2019-08-11 10:39 | HISTORY AND PHYSICAL ---
HISTORY OF PRESENT ILLNESS: He is a patient of Dr. Shahzad Fernando. He was here for an elective right inguinal hernia repair and was found to have significant hypoxemia. He states his breathing is normal, it felt normal to him. PAST MEDICAL HISTORY: 1. History of COPD. 2. History of coronary artery disease. He has had, I think he told me, 9 stents placed and 1 recently. 3. He has been smoking. He said he maybe has quit recently smoking. 4. He has had surgery on his uvula. They removed it. He reports that has been about 14 years ago. 5. He has been diagnosed with diastolic congestive heart failure. Last we checked in 2013, his ejection fraction was 60%. 6. He has had hypothyroidism, hypertension. PAST SURGICAL HISTORY: Multiple PTCAs with, he reports, 9 stents. He has I think tonsillectomy and adenoidectomy, uvula removed, kidney stone removed in the past, cholecystectomy, rotator cuff, left shoulder 3 surgeries, and then recent colon polypectomy. SOCIAL HISTORY: Denies alcohol or illicit drugs. He does smoke about a half a pack of cigarettes a day, or he was. He said he recently quit. ALLERGIES: No known drug allergies. REVIEW OF SYSTEMS: General: Does not report any weight gain or loss. No fever or chills. HEENT: No change in visual or hearing acuity. Respiratory: He does not report any change but had significant hypoxemia when he was evaluated for preop this morning. Denies pleuritic pain or change in sputum production. He does have a cough in the morning most mornings consistent with chronic bronchitis. Cardiovascular: No chest pain or tachy palpitations. Gastrointestinal/genitourinary: No change in his bowels or urination reported. He has a right inguinal hernia. Extremities: No pedal edema. Pulmonary: No complaints of orthopnea, paroxysmal nocturnal dyspnea. Musculoskeletal/Neurologic: No focal complaints Endocrinologic/hemologic: History of hypothyroidism. PHYSICAL EXAMINATION: GENERAL: Awake and alert, oriented x3, pleasant. VITAL SIGNS: Temperature was 99 degrees, pulse 80, respirations 17, blood pressure 166/98. Weight 185 pounds, height 5 feet 9 inches. HEENT: Pupils are equal and round. Oral and nasal mucosa, no sign of mucosal lesions. LUNGS: Clear in all lung robison anterior and lateral. I do not appreciate any prolonged expiratory phase or any wheezing. NECK: CVP is less than 8 cm from the angle of Yeison. PULSES: His carotid, radial, femoral pulses 2+ and symmetrical. EXTREMITIES: No pedal edema. SKIN: No sign of skin rash. LABORATORY DATA: White count 6830, hematocrit 39, platelet count 181,000. Sodium 139, potassium 4.0, chloride 97, BUN 20, creatinine 1.4. AST 12, ALT 8, alkaline phosphatase 53, albumin 4.0. CO2 is 42, PO2 is 61, pH is 7.44. His O2 saturations were 90%, that was on 28% FiO2. IMAGING: His chest x-ray, no evidence of acute disease. There is no evidence of acute cardiac or pulmonary disease. This was compared to chest x-ray on 04/24/2019 and no significant change. ASSESSMENT AND PLAN: 1. Hypoxemia. I suspect this may be from chronic obstructive pulmonary disease. He has diastolic dysfunction. He actually had a pulmonary arteriogram on 04/25/2019 in which suggested some interstitial fibrosis. No evidence of pulmonary emboli at that time. He has echocardiogram done on 09/02/2018. Left ventricular function, ejection fraction was 60%. No wall motion abnormalities at that time. His right ventricle was normal. Aortic valve looked normal. Mitral valve showed a mild degree of regurgitation, impaired left ventricular relaxation and his pulmonary pressure was about 42 mmHg. Tricuspid valve showed a mild degree of regurgitation. I do not see any sign of pneumonia. I do think we should start him on DuoNeb which he will get q.4 hours while awake and he is already on Pulmicort. I think we will use Symbicort and give him 2 puffs twice a day to add a long-acting beta agonist. I am going to get Dr. Duran to look as well. We will order some pulmonary function tests and see what his pulmonary function looks like, see if there is any reactive airway disease. 2. He has a history of coronary artery disease, diastolic dysfunction, but last time we checked which was August of last year, he had good left ventricular systolic function. Continue his current medications. 3. History of hypercholesterolemia. 4. He has a right inguinal hernia and we are going to need to see if he needs oxygen at home. We will see if maybe adding an anti antimuscurinic inhaler would be beneficial. cc: MD RADHA Muro
[2019-08-11] MEDS: DUONEB (A & A) INH SCH ×4 (11:16→23:15)
--- NOTE | 2019-08-11 13:13 | PROVIDER PROGRESS NOTE ---
Progress Note Pulmonary progress note: See the hand written progress note.
[2019-08-11] MEDS: SOLU-MEDROL IV SCH ×3 (14:27→22:30)
[2019-08-11] MEDS: ROCEPHIN 1 GM in NS 50 ML IV SCH (14:27)
[2019-08-11] MEDS: PRILOSEC PO SCH (14:28)
[2019-08-11] MEDS: ASPIRIN PO SCH (14:28)
[2019-08-11] MEDS: COREG PO SCH ×2 (14:28→20:12)
[2019-08-11] MEDS: TRENTAL PO SCH ×2 (14:28→20:12)
[2019-08-11] MEDS: IMDUR PO SCH (14:28)
[2019-08-11] MEDS ORDERED: SOLU-MEDROL IV SCH (15:30)
[2019-08-11] MEDS: PRAVACHOL PO SCH (20:12)
[2019-08-11] MEDS: PULMICORT INH SCH (20:12)
[2019-08-11] MEDS: LASIX PO SCH (20:14)
--- NOTE | 2019-08-11 21:30 | CONSULTATION ---
DATE OF CONSULTATION: 08/11/2019 REQUESTING PROVIDER: DINA Tinoco. REASON FOR CONSULTATION: COPD. HISTORY OF PRESENT ILLNESS: This is a 69-year-old male with a medical history of COPD, chronic coronary artery disease, diastolic congestive heart failure, hypothyroidism, hypertension. He apparently presented this morning for an elective right inguinal hernia repair. He was found to have significant hypoxemia before the surgery. Further workup in the ER was nonsignificant, except for elevated creatinine at 1.4. He does have shortness of breath and wheezing, so he has been admitted to the medical floor with COPD exacerbation. The patient currently is lying in bed with no acute distress noted. He reports occasional significant prolonged coughing spells that can last over 15 to 20 minutes with no production. Otherwise, he feels he is fine. He has no fever, chills, pedal edema, bowel habit change, urination discomfort, noticeable weight change, nausea, vomiting, chest pain, palpitation. He did have chronic wheezing at times. PAST MEDICAL AND SURGICAL HISTORY: 1. COPD. 2. Coronary artery disease status post 9 stents placed. 3. Diastolic congestive heart failure. 4. Hypothyroidism. 5. Hypertension. 6. Status post multiple PTCA's. 7. Status post uvula removal. 8. Status post kidney stone removal. 9. Cholecystectomy. 10. Rotator cuff. 11. Left shoulder surgery x3. 12. Recent colon polypectomy. SOCIAL HISTORY: The patient lives at home with his family. He is a former smoker with about half a pack per day and quit 8 months ago. He denies history of alcohol or illicit drug use. FAMILY HISTORY: Positive for breast cancer and kidney disease. ALLERGIES: No known drug allergies. REVIEW OF SYSTEMS: A 10-point review of systems was conducted and the pertinent is listed within the HPI, otherwise noncontributory. PHYSICAL EXAMINATION: Vital Signs: Temperature 98.1 degrees, blood pressure 164/87, pulse 79, respiratory rate 20, oxygen saturation 97% on nasal cannula at 2 L. General: Lying in bed with no acute distress noted. Family at the bedside. HEENT: Atraumatic, normocephalic. Trachea midline. Mucosa pink and moist. Respiratory: Even and unlabored. Symmetrical excursion. Auscultation reveals diminished breathing sounds bilaterally, prolonged expiratory phase and bilateral inspiratory and expiratory wheezing. Cardiovascular: Regular rate and rhythm. Gastrointestinal: Soft, nontender, nondistended. Normoactive bowel sounds in all 4 quadrants. Extremities: No pedal edema. No cyanosis. No clubbing. Dorsalis pedis 2+ bilaterally. Neurologic: Alert oriented x4. Speech fluent. Follows commands. LAB DATA: White blood cells 6.83, hemoglobin 12.6, hematocrit 39.8, platelet 181,000. Sodium 139, potassium 4.0, chloride 97, carbon dioxide 28, BUN 20, creatinine 1.4, glucose 98. ABG: PH 7.44, pCO2 42, PO2 61, HC03 27.8, base excess 3.9, and oxyhemoglobin 90.0. IMAGING DATA: Chest x-ray this morning showed no evidence of acute disease. ASSESSMENT: This is a 69-year-old male with a medical history of chronic obstructive pulmonary disease, coronary artery disease, diastolic congestive heart failure, hypothyroidism and hypertension. He has been admitted to the medical floor with chronic obstructive pulmonary disease exacerbation. 1. Acute hypoxic respiratory failure. 2. Chronic obstructive pulmonary disease exacerbation. 3. Acute renal failure. PLAN: 1. Continue supplemental oxygen as needed. 2. Continue antibiotic, steroid and bronchodilators. 3. Follow up with CBC, CMP, and pulmonary function test. Check ABG and chest x-ray if indicated. 4. Continue gastrointestinal and deep vein thrombosis prophylaxis. 5. Further recommendations pending hospital course. Thank you for the courtesy of this consult. Dictated by DINA Ignacio for Hilda Joyner MD cc: DINA Ignacio MD
[2019-08-12] MEDS: DUONEB (A & A) INH SCH ×6 (03:55→23:40)
[2019-08-12 07:25] LABS: BASO# 0.01 X1000 (0.0-0.2); BASO% 0.2 % (0.0-0.8); HEMATOCRIT 41.1 % (42.0-52.0); HEMOGLOBIN 13.1 g/dL (14.0-18.0); LYMPH# 1.62 X1000 (1.2-3.4); MCH 31.5 PG (27-31); MCHC 31.9 g/dL (33-37); MCV 98.8 FL (81-99); MONO# 0.54 X1000 (0.11-0.59); MPV 9.6 FL (7.4-10.4); NEUT# 3.82 X1000 (1.4-6.5); NEUT% 63.8 % (42.2-75.2); PLT 189 X1000 (130-400); RBC 4.16 XMIL (4.7-6.1); RDW 15.7 % (11.5-14.5); WBC 5.99 X1000 (4.8-10.8)
[2019-08-12 07:45] LABS: HEMOGLOBIN A1C 6.3 % (4.8-6.0)
[2019-08-12 07:48] LABS: AGAP 13; ALB/GLOB RATIO 1.1; ALBUMIN 4.2 g/dL (3.5-5.0); ALKALINE PHOSPHATASE 53 U/L (32-122); BUN 22 mg/dL (8-22); CHLORIDE 95 mmol/L (98-107); COSMO 278; CREATININE 1.2 mg/dL (0.7-1.2); ESTIMATED GFR > 60; GLUCOSE 172 mg/dL (70-104); GOT 12 U/L (10-34); GPT 9 U/L (10-44); IRON SATURATION 28 %; SODIUM 135 mmol/L (136-145); TCO2 27 mmol/L (25-35); TIBC 304 ug/dL; TOTAL BILIRUBIN 0.21 mg/dL (0.20-1.00); TOTAL IRON 84 ug/dL (53-167); UNBOUND IRON 220 ug/dL (112-346)
[2019-08-12] MEDS: PULMICORT INH SCH ×2 (07:58→19:57)
[2019-08-12 08:09] LABS: FREE T4 1.1 ng/dL (0.93-1.70); TSH 0.13 uIUmL (0.27-4.20)
[2019-08-12] MEDS: ROCEPHIN 1 GM in NS 50 ML IV SCH (09:34)
[2019-08-12] MEDS: ROBITUSSIN-DM PO PRN (09:34)
[2019-08-12] MEDS: COREG PO SCH ×2 (09:35→21:37)
[2019-08-12] MEDS: PLAVIX PO SCH (09:35)
[2019-08-12] MEDS: KLOR-CON PO SCH (09:35)
[2019-08-12] MEDS: ASPIRIN PO SCH (09:35)
[2019-08-12] MEDS: IMDUR PO SCH (09:35)
[2019-08-12] MEDS: TRENTAL PO SCH ×3 (09:35→21:37)
[2019-08-12] MEDS: PRILOSEC PO SCH (09:38)
[2019-08-12] MEDS: SOLU-MEDROL IV SCH ×3 (09:38→22:46)
--- NOTE | 2019-08-12 13:37 | PROGRESS NOTE ---
DATE: 08/12/2019 SUBJECTIVE: Mr. Lopez remains afebrile. OBJECTIVE: Vital Signs: Temperature 97.7 degrees, pulse 72, respirations 20, blood pressure 142/70. HEENT: Pupils are equal and reactive. Neck: No distended neck veins. Lungs: Clear anterolateral and posterior. Cardiovascular: Regular rhythm and rate without murmur or S3. Extremities: No pedal edema. DIAGNOSTIC DATA: Pulmonary function tests were performed and his FVC was 62% of predicted and FEV1 was 49% of predicted. FEV1 over FVC was 79% of predicted and appears to be consistent with COPD. IMPRESSION: 1. The patient with chronic obstructive pulmonary disease and probable chronic obstructive pulmonary disease exacerbation. Continue supplemental oxygen. Continue present antibiotic and bronchodilators. 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 2. Acute kidney injury. This may be chronic, but his creatinine was 1.2 today. When he came in, it was 1.4, so it is probably some mild chronic kidney disease. He still has a little bit of a cough. We will see if he is going to require oxygen for home. He had an echocardiogram in August of this year. So, I do not think we need to repeat that. The echocardiogram showed ejection fraction of 60%. Left ventricular function appeared normal. No significant valvular dysfunction. Pulmonary pressure was 42 mmHg. cc: Dex Alexandre MD
[2019-08-12] MEDS: SYMBICORT 80/4.5 MICROGM INHALER INH SCH ×2 (15:01→19:35)
[2019-08-12] MEDS: PRAVACHOL PO SCH (21:37)
[2019-08-12] MEDS: LASIX PO SCH (21:37)
[2019-08-13] MEDS: DUONEB (A & A) INH SCH ×6 (03:50→23:24)
[2019-08-13 07:21] LABS: BASO# 0.02 X1000 (0.0-0.2); BASO% 0.3 % (0.0-0.8); HEMATOCRIT 41.4 % (42.0-52.0); HEMOGLOBIN 13.5 g/dL (14.0-18.0); IMM GRAN# 0.04 X1000 (0.0-0.04); IMM GRAN% 0.5 % (0.0-0.5); LYMPH# 1.18 X1000 (1.2-3.4); LYMPH% 15.6 % (20.5-51.1); MCHC 32.6 g/dL (33-37); MCV 98.1 FL (81-99); MONO# 0.69 X1000 (0.11-0.59); MONO% 9.2 % (1.7-9.3); MPV 10.1 FL (7.4-10.4); NEUT# 5.61 X1000 (1.4-6.5); NEUT% 74.4 % (42.2-75.2); PLT 186 X1000 (130-400); RBC 4.22 XMIL (4.7-6.1); RDW 15.6 % (11.5-14.5); WBC 7.54 X1000 (4.8-10.8)
[2019-08-13 08:05] LABS: AGAP 13; ALB/GLOB RATIO 1.2; ALBUMIN 4.1 g/dL (3.5-5.0); ALKALINE PHOSPHATASE 49 U/L (32-122); BUN 24 mg/dL (8-22); CALCIUM 9.7 mg/dL (8.8-10.2); CHLORIDE 96 mmol/L (98-107); COSMO 274; CREATININE 1.2 mg/dL (0.7-1.2); ESTIMATED GFR > 60; GLUCOSE 138 mg/dL (70-104); GOT 11 U/L (10-34); GPT 9 U/L (10-44); POTASSIUM 4.8 mmol/L (3.5-5.1); SODIUM 134 mmol/L (136-145); TCO2 25 mmol/L (25-35); TOTAL BILIRUBIN 0.24 mg/dL (0.20-1.00); TOTAL PROTEIN 7.5 g/dL (6.3-8.3)
[2019-08-13] MEDS: PULMICORT INH SCH ×2 (08:05→19:56)
[2019-08-13] MEDS: SYMBICORT 80/4.5 MICROGM INHALER INH SCH ×2 (08:08→19:55)
[2019-08-13] MEDS: IMDUR PO SCH (08:59)
[2019-08-13] MEDS: TRENTAL PO SCH ×3 (08:59→20:30)
[2019-08-13] MEDS: ASPIRIN PO SCH (08:59)
[2019-08-13] MEDS: SOLU-MEDROL IV SCH ×2 (08:59→15:06)
[2019-08-13] MEDS: KLOR-CON PO SCH (08:59)
[2019-08-13] MEDS: PLAVIX PO SCH (08:59)
[2019-08-13] MEDS: COREG PO SCH ×2 (08:59→20:30)
[2019-08-13] MEDS: PRILOSEC PO SCH (09:00)
[2019-08-13] MEDS: ROCEPHIN 1 GM in NS 50 ML IV SCH ×2 (09:00→11:31)
--- NOTE | 2019-08-13 11:29 | PROGRESS NOTE ---
DATE: 08/13/2019 SUBJECTIVE: He was about ready to take a shower. He says his breathing is doing better. OBJECTIVE: Vital signs: He remains afebrile, temperature 97.7 degrees, pulse 70, respirations 18, blood pressure 153/83. HEENT: Pupils are equal and round. Lungs: Clear in all lung robison. Cardiovascular: Regular rhythm and rate without murmur or S3. His urine output was 1500 mL. ASSESSMENT AND PLAN: 1. Chronic obstructive pulmonary disease with probable chronic obstructive pulmonary disease exacerbation. Continue supplemental oxygen, and he seems to be moving air better and doing better. 2. Acute kidney injury. His creatinine is stable at 1.2. When he came in, creatinine was 1.4. Pulmonary function tests appear to be consistent with chronic obstructive pulmonary disease. We will see if he will need oxygen. We will continue him on steroid and long-acting beta agonist inhaler, treating him for possible bronchitis with ceftriaxone. We will ask Respiratory to see if he is going to need oxygen. We will postpone his inguinal hernia repair. We will discuss with Dr. Austin on Thursday and then we can go from there. cc: Dex Alexandre MD
[2019-08-13] MEDS: LASIX PO SCH (20:30)
[2019-08-13] MEDS: PRAVACHOL PO SCH (20:30)
[2019-08-13] MEDS: ROBITUSSIN-DM PO PRN (20:38)
[2019-08-14] MEDS: SOLU-MEDROL IV SCH ×3 (00:23→21:45)
[2019-08-14] MEDS: DUONEB (A & A) INH SCH ×6 (03:55→23:03)
[2019-08-14] MEDS: PULMICORT INH SCH ×2 (08:11→19:47)
[2019-08-14 08:13] LABS: BASO# 0.01 X1000 (0.0-0.2); BASO% 0.1 % (0.0-0.8); HEMATOCRIT 42.1 % (42.0-52.0); HEMOGLOBIN 13.7 g/dL (14.0-18.0); IMM GRAN# 0.05 X1000 (0.0-0.04); IMM GRAN% 0.6 % (0.0-0.5); LYMPH# 1.12 X1000 (1.2-3.4); LYMPH% 13.8 % (20.5-51.1); MCHC 32.5 g/dL (33-37); MCV 98.4 FL (81-99); MONO# 0.76 X1000 (0.11-0.59); MONO% 9.4 % (1.7-9.3); MPV 10.1 FL (7.4-10.4); NEUT# 6.15 X1000 (1.4-6.5); NEUT% 76.1 % (42.2-75.2); PLT 205 X1000 (130-400); RBC 4.28 XMIL (4.7-6.1); RDW 15.8 % (11.5-14.5); WBC 8.09 X1000 (4.8-10.8)
[2019-08-14] MEDS: SYMBICORT 80/4.5 MICROGM INHALER INH SCH ×2 (08:14→19:48)
[2019-08-14 08:27] LABS: AGAP 12; ALB/GLOB RATIO 1.3; ALBUMIN 4.2 g/dL (3.5-5.0); ALKALINE PHOSPHATASE 53 U/L (32-122); BUN 28 mg/dL (8-22); CALCIUM 9.8 mg/dL (8.8-10.2); CHLORIDE 98 mmol/L (98-107); COSMO 282; CREATININE 1.2 mg/dL (0.7-1.2); ESTIMATED GFR > 60; GLUCOSE 177 mg/dL (70-104); GOT 11 U/L (10-34); GPT 13 U/L (10-44); POTASSIUM 4.8 mmol/L (3.5-5.1); SODIUM 136 mmol/L (136-145); TCO2 26 mmol/L (25-35); TOTAL BILIRUBIN 0.15 mg/dL (0.20-1.00); TOTAL PROTEIN 7.5 g/dL (6.3-8.3)
[2019-08-14] MEDS: ROCEPHIN 1 GM in NS 50 ML IV SCH (09:30)
[2019-08-14] MEDS: TRENTAL PO SCH ×3 (09:32→21:45)
[2019-08-14] MEDS: KLOR-CON PO SCH (09:32)
[2019-08-14] MEDS: PRILOSEC PO SCH (09:33)
[2019-08-14] MEDS: COREG PO SCH ×2 (09:33→21:45)
[2019-08-14] MEDS: IMDUR PO SCH (09:33)
[2019-08-14] MEDS: ASPIRIN PO SCH (09:33)
[2019-08-14] MEDS: PLAVIX PO SCH (09:33)
[2019-08-14] MEDS ORDERED: CHLORASEPTIC SPRAY MT PRN (09:55)
--- NOTE | 2019-08-14 15:58 | PROGRESS NOTE ---
DATE: 08/14/2019 SUBJECTIVE: Mr. Lopez is breathing better. He is feeling better so the question is whether he is going to need oxygen for home. I also want to talk to Dr. Austin and see when he wants to pursue inguinal hernia repair since it was elective surgery. OBJECTIVE: Temperature is 97.8 degrees, pulse 70, respirations 18, blood pressure 157/74. Pupils are equal and round. Lungs are clear in all lung robison. Cardiovascular Examination: Regular rhythm and rate without murmur or S3. Urine output is 3000 mL. ASSESSMENT AND PLAN: Chronic obstructive pulmonary disease. Continue his oxygen and bronchodilators. He is currently getting DuoNebs. He is on Pulmicort 0.5 mg twice a day and budesonide and formoterol 2 puffs twice a day. I gave him some intravenous methylprednisone 40 mg every 8. I will cut that down to 20 mg every 12 hours. He is on Pentoxifylline ER at 400 mg three times a day and we gave him some empiric ceftriaxone. I do not see any evidence of pneumonia. Was treating him for bronchitic organisms. My hope is that maybe he can go home tomorrow but we need to see if he is going to need supplementary oxygen. cc: Dex Alexandre MD
[2019-08-14] MEDS: PRAVACHOL PO SCH (21:45)
[2019-08-14] MEDS: LASIX PO SCH (21:45)
[2019-08-15] MEDS: DUONEB (A & A) INH SCH ×4 (03:34→15:22)
[2019-08-15] MEDS: PULMICORT INH SCH (07:46)
[2019-08-15] MEDS: SYMBICORT 80/4.5 MICROGM INHALER INH SCH (07:46)
[2019-08-15 08:11] LABS: BASO# 0.01 X1000 (0.0-0.2); BASO% 0.1 % (0.0-0.8); HEMATOCRIT 42.8 % (42.0-52.0); IMM GRAN# 0.09 X1000 (0.0-0.04); IMM GRAN% 0.9 % (0.0-0.5); LYMPH# 1.42 X1000 (1.2-3.4); LYMPH% 13.8 % (20.5-51.1); MCH 31.8 PG (27-31); MCHC 32.7 g/dL (33-37); MCV 97.3 FL (81-99); MONO# 1.24 X1000 (0.11-0.59); MONO% 12.1 % (1.7-9.3); NEUT# 7.51 X1000 (1.4-6.5); NEUT% 73.1 % (42.2-75.2); PLT 206 X1000 (130-400); RDW 15.5 % (11.5-14.5); WBC 10.27 X1000 (4.8-10.8)
[2019-08-15 08:30] LABS: AGAP 12; ALB/GLOB RATIO 1.3; ALKALINE PHOSPHATASE 52 U/L (32-122); BUN 37 mg/dL (8-22); CALCIUM 9.3 mg/dL (8.8-10.2); CHLORIDE 99 mmol/L (98-107); COSMO 285; CREATININE 1.4 mg/dL (0.7-1.2); ESTIMATED GFR > 60; GLUCOSE 152 mg/dL (70-104); GOT 14 U/L (10-34); GPT 23 U/L (10-44); POTASSIUM 4.4 mmol/L (3.5-5.1); SODIUM 137 mmol/L (136-145); TCO2 26 mmol/L (25-35); TOTAL BILIRUBIN 0.16 mg/dL (0.20-1.00); TOTAL PROTEIN 7.2 g/dL (6.3-8.3)
[2019-08-15] MEDS: ASPIRIN PO SCH (08:42)
[2019-08-15] MEDS: SOLU-MEDROL IV SCH (08:42)
[2019-08-15] MEDS: TRENTAL PO SCH ×2 (08:42→15:43)
[2019-08-15] MEDS: COREG PO SCH (08:43)
[2019-08-15] MEDS: KLOR-CON PO SCH (08:43)
[2019-08-15] MEDS: PRILOSEC PO SCH (08:43)
[2019-08-15] MEDS: PLAVIX PO SCH (08:43)
[2019-08-15] MEDS: IMDUR PO SCH (08:43)
--- NOTE | 2019-08-15 08:44 | DISCHARGE SUMMARY ---
ADMISSION DATE: 08/11/2019 DISCHARGE DATE: REASON FOR ADMISSION: This is a patient of Dr. Shahzad Fernando who came for elective inguinal hernia repair and preoperative noted significant hypoxemia and so was admitted here. It was felt he had exacerbation of COPD and longstanding COPD. PAST MEDICAL HISTORY: 1. History of COPD. 2. Coronary artery disease. He has had a total of 9 stents placed, 1 recently. 3. He has been smoking and we have urged him to quit tobacco products. 4. He had surgery on his uvula years ago. He had an enlarged uvula. This was over 14 years ago. 5. Diagnosed with diastolic congestive heart failure back in 2012. His ejection fraction was 60%. 6. History of hypothyroidism. 7. Hypertension. PAST SURGICAL HISTORY: Multiple PTCAs. By his report, he has had 9 stents, 1 recently. He has had a tonsillectomy and adenoidectomy, uvula removed, kidney stone removed in the past, cholecystectomy, rotator cuff and left shoulder had 3 surgeries, and recent colon polypectomy. HOSPITAL COURSE: He was put on some supplementary O2, bronchodilators with steroid inhaler and long-acting beta-agonist. We rechecked an echocardiogram, and his ejection fraction was 60%. We ordered some pulmonary function tests, which seemed to be in line with his chronic obstructive pulmonary disease, and we are seeing if he is eligible for oxygen at home. His breathing was much better. Plan is to try and get him home today, which is 08/15/2019. DISCHARGE MEDICATIONS: He has been on aspirin 81 mg a day. We have him on Symbicort 2 puffs twice a day, Coreg 25 mg b.i.d., Lasix 80 mg p.o., which we will give him every morning. He will take Trental 400 mg t.i.d. and Pravachol 80 mg every night at bedtime, and we will see if he is eligible for oxygen. cc: Dex Alexandre MD
[2019-08-15 08:49] VITALS: BP 137/84
[2019-08-15] MEDS: ROCEPHIN 1 GM in NS 50 ML IV SCH (10:00)
--- NOTE | 2019-08-15 13:25 | PROGRESS NOTE ---
DATE: 08/15/2019 SUBJECTIVE: Mr. Andrea Lopez has a symptomatic inguinal hernia, and he was scheduled to have it repaired on the date of admission, but Anesthesia canceled the case because of work of breathing. He was hospitalized by Dr. Alexandre and has undergone treatment for sinusitis, bronchitis, COPD, and symptomatically he has improved. PLAN: The plans are to discharge him home later today, and my office will notify him on when his inguinal hernia surgery will be rescheduled. cc: Tangela Austin MD
--- NOTE | 2019-08-15 16:53 | PROVIDER PROGRESS NOTE ---
Progress Note Dr. Joyner Progress Note/Pulmonary and or critical care We appreciated progress of care, Complications, change in diagnosis, and instructions to patient under direct supervision of Dr. Joyner. Subjective: We note the level of consciousness, bed (chair) position, family presence (if any), level of lethargy, feeling of symptoms, and changes from baseline condition/symptom. The patient feels: better. Reports no wheezing/sob/pleurisy. He is on room air currently and tolerates well. Vital Signs: We reviewed EMR current values for Pulse rate, Blood pressure, Pulse rate, respiratory rate and Pulse oximetry. Also noted other values and trends if present (e.g. I/O, CVP). Vital Signs - 24 hr 08/14/19 19:23 08/14/19 19:47 08/15/19 04:00 Temperature 98.3 F 97.8 F Pulse Rate 82 83 81 Respiratory Rate 18 Blood Pressure 135/75 138/89 O2 Sat by Pulse Oximetry 100 99 98 08/15/19 07:47 08/15/19 08:00 Temperature 97.4 F L Pulse Rate 80 81 Respiratory Rate 18 18 Blood Pressure 137/84 O2 Sat by Pulse Oximetry 97 97 Objective: General and HEENT: Trachea Midline. Chest: Prolonged Expiratory Phase. CVS: S1 S2. Abdomen: Non-tender. Bowel Sounds present. Soft. Mildly distended. Extremities: No pedal edema Neuro: Alert. Labs and Radiology: Reviewed available labs and radiology values available at time of EMR review. Laboratory Results 08/15/19 08/15/19 07:43 07:43 WBC 10.27 RBC 4.40 L Hgb 14.0 Hct 42.8 MCV 97.3 MCH 31.8 H MCHC 32.7 L RDW Std Deviation 15.5 H Plt Count 206 MPV 10.0 Immature Gran % (Auto) 0.9 H Neut % (Auto) 73.1 Lymph % (Auto) 13.8 L [place] % (Auto) 12.1 H Eos % (Auto) 0.0 Baso % (Auto) 0.1 Immature Gran # (Auto) 0.09 H Neut # (Auto) 7.51 H Lymph # (Auto) 1.42 [place] # (Auto) 1.24 H Eos # (Auto) 0.00 Baso # (Auto) 0.01 Sodium 137 Potassium 4.4 Chloride 99 Carbon Dioxide 26 Anion Gap 12 BUN 37 H Creatinine 1.4 H Estimated GFR/1.73 m2 > 60 BUN/Creatinine Ratio 26 Glucose 152 H Calculated Osmolality 285 Calcium 9.3 Total Bilirubin 0.16 L AST 14 ALT 23 Alkaline Phosphatase 52 Total Protein 7.2 Albumin 4.0 Globulin 3.2 Albumin/Globulin Ratio 1.3 Dr. Joyner evaluated and additional note below. Evaluation time in minutes: Less than 30 minutes Assessment: COPD exacerbation Respiratory failure SOB Plan Continue current treatment and supportive care per admitting and other teams on the case. Antibiotics Steroids Bronchodilators Appropriate DVT and GI prophylaxis DC planning per admitting MD Input was appreciated from Admitting MD and other teams on the case.
== END 2019-08-15 18:27 | disposition home or self-care (01) | DRG 191 ==
LOC: ED 06:48 → EDIPHOLD 10:16 → 3N 13:17
PROVIDERS: ATTEND Emergency Medicine

== ENCOUNTER 2019-08-27 19:44 | Inpatient (IN) ==
[2019-08-27] MEDS ORDERED: ASPIRIN PO ONE (20:04)
--- NOTE | 2019-08-27 20:36 | Diag Imaging Result Doc PS360 ---
EXAM: CHEST-2 VIEWS 08/27/2019 HISTORY: COUGH/SOB TECHNIQUE: PA and lateral chest COMMENT: There are calcified nodes in the right hilum and azygous region. There are bilateral nipple shadows. The heart size and pulmonary vascularity are within normal limits. The lungs are clear and unchanged since the previous study of 08/11/2019. IMPRESSION: No acute disease. Electronically signed by John Mcleod 08/27/2019 8:34 PM
--- NOTE | 2019-08-27 20:44 | EKG Report ---
Test Performed on : 08/27/2019 8:04:37 PM Test Reason : COUGH/SOB Blood Pressure : / mmHG Vent. Rate : 122 BPM Atrial Rate : 122 BPM P-R Int : 144 ms QRS Dur : 126 ms QT Int : 332 ms P-R-T Axes : 077 266 065 degrees QTc Int : 473 ms Sinus tachycardia. Right bundle branch block Abnormal ECG When compared with ECG of 11-AUG-2019 07:45, (Unconfirmed) Nonspecific T wave abnormality no longer evident in Inferior leads Unconfirmed Result
[2019-08-27 21:44] LABS: BASO# 0.04 X1000 (0.0-0.2); BASO% 0.3 % (0.0-0.8); EOS# 0.08 X1000 (0.0-0.7); EOS% 0.6 % (0.0-10.0); HEMATOCRIT 42.8 % (42.0-52.0); HEMOGLOBIN 13.8 g/dL (14.0-18.0); IMM GRAN# 0.07 X1000 (0.0-0.04); IMM GRAN% 0.5 % (0.0-0.5); LYMPH# 1.39 X1000 (1.2-3.4); LYMPH% 10.6 % (20.5-51.1); MCH 31.7 PG (27-31); MCHC 32.2 g/dL (33-37); MCV 98.2 FL (81-99); MONO# 1.44 X1000 (0.11-0.59); MONO% 10.9 % (1.7-9.3); MPV 9.8 FL (7.4-10.4); NEUT# 10.14 X1000 (1.4-6.5); NEUT% 77.1 % (42.2-75.2); PLT 176 X1000 (130-400); RBC 4.36 XMIL (4.7-6.1); RDW 15.6 % (11.5-14.5); WBC 13.16 X1000 (4.8-10.8)
[2019-08-27 21:59] LABS: INR 0.99; PROTIME 13.2 Seconds (11.0-16.0)
[2019-08-27 22:09] LABS: ALBUMIN 3.9 g/dL (3.5-5.0); CALCIUM 9.5 mg/dL (8.8-10.2); CREATININE 1.6 mg/dL (0.7-1.2); POTASSIUM 4.8 mmol/L (3.5-5.1); TOTAL BILIRUBIN 0.17 mg/dL (0.20-1.00); TOTAL PROTEIN 7.9 g/dL (6.3-8.3)
[2019-08-27] MEDS ORDERED: TAMIFLU PO ONE (22:44)
[2019-08-27] MEDS ORDERED: PREDNISONE PO ONE (22:44)
[2019-08-27] MEDS ORDERED: ZITHROMAX 500 MG/NS 500 MG/250 ML IVPB IV ONE (22:45)
[2019-08-27] MEDS ORDERED: DUONEB (A & A) INH ONE (22:47)
[2019-08-27] MEDS ORDERED: NS 1,000 ML IV ONE (22:49)
--- NOTE | 2019-08-27 22:51 | PROVIDER DOCUMENTATION ---
HPI-General Adult - General Chief Complaint: Shortness of Breath Stated Complaint: COUGHING, SOB Time Seen by Provider: 08/27/19 22:22 Source: patient, family Allergies/Adverse Reactions: Patient Allergies Allergy/AdvReac Type Severity Reaction Status Date / Time lisinopril Allergy ANAPHYLAXIS Verified 08/27/19 22:42 Home Medications: Home Medication List Medication Instructions Recorded Confirmed Last Taken Type Potassium Chloride 10 meq PO DAILY #30 tablet.er 10/23/12 08/27/19 08/10/19 09:00 Rx Furosemide [Lasix] 80 mg PO HS 02/21/16 08/27/19 08/10/19 20:00 History Albuterol 2.5MG/Ipratrop 0.5MG 1 dose NEB 409/03/18 08/27/19 3 Weeks Ago History [Duoneb (A & A)] ~07/21/19 Omeprazole [Prilosec] 40 mg PO DAILY 09/03/18 08/27/19 08/10/19 20:00 History PRAVAstatin [Pravachol] 80 mg PO QHS 09/03/18 08/27/19 08/10/19 20:00 History Isosorbide Mononitrate E.r. [Imdur] 30 mg PO DAILY #30 tab 09/05/18 08/27/19 08/10/19 09:00 Rx Aspirin 81 mg PO DAILY 08/08/19 08/27/19 08/25/19 History Clopidogrel Bisulfate [Plavix] 75 mg PO DAILY 08/08/19 08/27/19 08/25/19 History Nitroglycerin [Nitrostat] 0.4 mg SUBLINGUAL PRN PRN 08/08/19 08/27/19 3 Months Ago History ~05/11/19 Carvedilol [Coreg] 25 mg PO BID 08/11/19 08/27/19 Unknown History Pentoxifylline E.r. [Trental] 400 mg PO TID 08/11/19 08/27/19 Unknown History Guaifenesin/Dm [Robitussin-Dm] 10 ml PO Q4H PRN PRN bottle 08/15/19 08/27/19 Unknown Rx Phenol 1.4% Kake [Chloraseptic 0 ml MT PRN PRN bottle 08/15/19 08/27/19 Unknown Rx Kake] Budesonide/Formoterol Inhaler 2 puff INH BID 08/26/19 08/27/19 Unknown History [Symbicort 80/4.5 Microgm Inhaler] Meclizine HCl [Travel-Ease] 1 tab PO TID 08/26/19 08/27/19 Unknown History - History of Present Illness -Gen Adult Nature of Presenting Problems: 69yo male presents with CC of shortness of breath and cough. The onset was this morning and the assoicated symptoms were abdominal pain. The patient denies fever. He reports hx of COPD. He is an active smoker. The patient does not where O2 at home. The patient has been off steroids x1 week. The patient denies vomiting or diarrhea. Location of Pain/Injury: reports: abdomen, other (Shortness of breath) Severity: reports: moderate Onset/Duration: reports: this morning Timing: reports: still present Associated Symptoms: reports: cough, shortness of breath Review of Systems - Adult - REVIEW OF SYSTEMS - ADULT Constitutional: reports: no symptoms reported. denies: fever Eyes: reports: no symptoms reported. denies: eye pain Ears, Nose, Mouth & Throat: reports: no symptoms reported. denies: throat pain Cardiovascular: reports: chest pain Respiratory: reports: cough, shortness of breath Gastrointestinal: reports: abdominal pain. denies: diarrhea, vomiting Genitourinary: reports: no symptoms reported. denies: flank pain Musculoskeletal: reports: no symptoms reported. denies: joint swelling Integumentary: reports: no symptoms reported Neurological: reports: no symptoms reported. denies: headache/migraines Psychiatric: reports: no symptoms reported Endocrine: reports: no symptoms reported Hematologic/Lymphatic: reports: no symptoms reported Allergic/Immunologic: reports: no symptoms reported Past History - Adult - PAST MEDICAL HISTORY-ADULT Review of Records: reports: Old Records Reviewed, Nursing Assessment Review, Medications Reviewed Major Childhood Illnesses: reports: denies history Cardiovascular: reports: cardiac disease, CAD, CHF, HTN, hyperlipidemia, TN (x3) Respiratory: reports: asthma, COPD Gastrointestinal: reports: GERD Obstetrical/Gynecological: reports: denies history Genitourinary: reports: kidney disease, kidney stones Musculoskeletal: reports: denies history Neurological: reports: CVA, TIA Psychiatric: reports: anxiety Endocrine/Immune: reports: thyroid disorder Other Conditions: reports: denies history - PRIOR SURGERIES/PROCEDURES Surgical/Procedure History: reports: cholecystectomy, cardiac stent (x6) - IMMUNIZATION STATUS Childhood Immunizations: See Nurse Assessment Flu Vaccine: See Nurse Assessment - FAMILY HISTORY Family History: reviewed, not pertinent - SOCIAL HISTORY Smoking: cigarettes Substance Use: none/never Alcohol Use Frequency: never Physical Exam-General - PHYSICAL EXAM-ADULT Initial Vital Signs Reviewed: Yes - CONSTITUTIONAL General Appearance: alert, moderate distress - EYES Eyes: sclera injected. negative: conjuctival exudate, photophobia, scleral icterus - HEAD, EARS, NOSE, MOUTH & THROAT HENMT: normocephalic/atraumatic, moist mucous membranes, pharyngeal erythema - NECK Neck: non-tender, supple - RESPIRATORY Respiratory: respiratory distress, wheezing (diffuse bilaterally) - CARDIOVASCULAR Cardiovascular: no edema, tachycardia - GASTROINTESTINAL (ABDOMEN) Abdominal Exam: non tender, soft - MUSCULOSKELETAL Extremity: non-tender. negative: deformity, swelling - SKIN Integumentary: normal color, warm/dry - NEUROLOGIC Neurologic: grossly normal - PSYCHIATRIC Psych/Mental Status: anxious Progress - PLAN OF CARE/RESULTS Progress/Plan/Lab Results: Vital Signs - 8 hr 08/27/19 19:45 Temperature 100.2 F H Pulse Rate 114 H Respiratory Rate 20 Blood Pressure 135/66 O2 Sat by Pulse Oximetry 94 L 08/27/19 20:01 Influenza Screen - Final Nasopharyngeal Laboratory Results - last 24 hr 08/27/19 08/27/19 08/27/19 21:26 21:26 21:26 WBC 13.16 H RBC 4.36 L Hgb 13.8 L Hct 42.8 MCV 98.2 MCH 31.7 H MCHC 32.2 L RDW Std Deviation 15.6 H Plt Count 176 MPV 9.8 Immature Gran % (Auto) 0.5 Neut % (Auto) 77.1 H Lymph % (Auto) 10.6 L [place] % (Auto) 10.9 H Eos % (Auto) 0.6 Baso % (Auto) 0.3 Immature Gran # (Auto) 0.07 H Neut # (Auto) 10.14 H Lymph # (Auto) 1.39 [place] # (Auto) 1.44 H Eos # (Auto) 0.08 Baso # (Auto) 0.04 PT INR PTT (Actin FS) Sodium 139 Potassium 4.8 Chloride 103 Carbon Dioxide 21 L Anion Gap 15 BUN 19 Creatinine 1.6 H Estimated GFR/1.73 m2 52 BUN/Creatinine Ratio 12 Glucose 97 Calculated Osmolality 280 Calcium 9.5 Total Bilirubin 0.17 L AST 16 ALT 13 Alkaline Phosphatase 60 Creatine Kinase 38 Troponin T High Sens Etw-S-Ddccxwihzrd Pept 205 Total Protein 7.9 Albumin 3.9 Globulin 4.0 Albumin/Globulin Ratio 1.0 08/27/19 08/27/19 21:26 21:26 WBC RBC Hgb Hct MCV MCH MCHC RDW Std Deviation Plt Count MPV Immature Gran % (Auto) Neut % (Auto) Lymph % (Auto) [place] % (Auto) Eos % (Auto) Baso % (Auto) Immature Gran # (Auto) Neut # (Auto) Lymph # (Auto) [place] # (Auto) Eos # (Auto) Baso # (Auto) PT 13.2 INR 0.99 PTT (Actin FS) 31.0 Sodium Potassium Chloride Carbon Dioxide Anion Gap BUN Creatinine Estimated GFR/1.73 m2 BUN/Creatinine Ratio Glucose Calculated Osmolality Calcium Total Bilirubin AST ALT Alkaline Phosphatase Creatine Kinase Troponin T High Sens 25 H Cme-K-Wracoeamrxk Pept Total Protein Albumin Globulin Albumin/Globulin Ratio Orders Category Date Time Status Cardiac Monitoring DIRECTED Care 08/27/19 20:04 Active Oxygen Therapy- ED Nursing DIRECTED Care 08/27/19 20:04 Active Saline Loc NOW Care 08/27/19 20:04 Active CHEST-2 VIEWS [RAD] Stat Exams 08/27/19 20:04 Completed ABG [RESP] Routine Lab 08/27/19 22:43 Ordered CBC WITH ELECTRONIC DIFF [HEME] Stat Lab 08/27/19 21:26 Completed CK PROFILE [SP CHEM] Stat Lab 08/27/19 21:26 Completed COMPREHENSIVE METABOLIC PANEL [CHEM] Stat Lab 08/27/19 21:26 Completed INFLUENZA SCREEN A/B Stat Lab 08/27/19 20:01 Completed LACTATE, PLASMA [CHEM] Stat Lab 08/27/19 22:43 Uncollected PRO B-NATRIURETIC PEPTIDE Stat Lab 08/27/19 21:26 Completed PROTIME WITH INR [COAG] Stat Lab 08/27/19 21:26 Completed PTT [COAG] Stat Lab 08/27/19 21:26 Completed TROPONIN T HIGH SENSITIVITY Stat Lab 08/27/19 21:26 Completed Aspirin Med 08/27/19 20:04 Discontinued 325 mg PO NOW ONE Azithromycin 500 mg/Ns [Zithromax 500 mg/Ns] Med 08/27/19 22:45 Active 500 mg in 250 ml IV NOW Oseltamivir [Tamiflu] Med 08/27/19 22:44 Discontinued 75 mg PO NOW ONE Prednisone Med 08/27/19 22:44 Once 40 mg PO NOW ONE CP/SOB/Palp >45 yrs of Age Stat Oth 08/27/19 20:04 Ordered EKG [EKG] Stat Ther 08/27/19 19:59 Draft Result Diagrams: 08/27/19 21:26 08/27/19 21:26 - REASSESSMENT Reassessment #2 Status: other (Patient drops to 85% on room air when ambulating after treatment. Nursing has also documented this. Pt needing O2 above baseline in the setting of COPDE and influenza after nebulizer and steroids treatment.) Reassessment #1 Status: other (Discussed the case with the hospitalist team who has accepted the patient.) Departure - Departure Date of Disposition Decision: 08/28/19 Time of Disposition Decision: 00:21 DIAGNOSIS: COPD exacerbation, Influenza, Acute respiratory failure with hypoxia Disposition: ADMITTED INPATIENT 09 Certified Medical Emergency: Emergent Condition: Fair Referrals and Follow-Ups: Shahzad Fernando MD [Primary Care Provider] - - Critical Care Note This patient required my direct & personal management of CC.: No Attestation - Physician/ CAMMY Attestation Patient care was provided by Advanced Practice Provider:: No The physician spent face to face time with patient:: Yes Advanced Practice Provider documentation review:: Supervising physician onsite and consulted in the evaluation and care of this patient. The physician did have a face to face encounter with the patient.
[2019-08-27] MEDS ORDERED: TYLENOL PR ONE (22:53)
[2019-08-27 22:58] LABS: ALLEN TEST YES; BE -0.7 mmoll (-3.0-3.0); BLOOD TYPE ARTERIAL; HCO3-(ACT) 24.2 mmoll (20.0-26.0); METHB 1.3 % (0.0-1.5); O2(CT) 17.9 mL/dL (15.0-23.0); PCO2(98.6) 40 mmHg (35-45); PO2(98.6) 63 mmHg (60-100); SAMPLE BLOOD; SAO2 94.5 % (95.0-100.0); THB 14.2 g/dL (11.5-17.4); pH(98.6) 7.39 (7.35-7.45)
[2019-08-27 22:59] LABS: MODALITY CANNULA
[2019-08-27 23:01] LABS: O2HB 89.5 % (95.0-99.0)
[2019-08-28] MEDS ORDERED: DUONEB (A & A) INH PRN (00:21)
[2019-08-28] MEDS ORDERED: NS 1,000 ML IV SCH (00:30)
[2019-08-28] MEDS ORDERED: LEVAQUIN 500 MG/D5W 500 MG/100 ML IVPB IV SCH (00:30)
[2019-08-28] MEDS: DUONEB (A & A) INH SCH ×6 (03:06→22:48)
[2019-08-28] MEDS: SOLU-MEDROL IV SCH ×2 (04:25→12:15)
[2019-08-28] MEDS ORDERED: ROBITUSSIN-DM PO PRN (06:57)
--- NOTE | 2019-08-28 07:13 | HISTORY AND PHYSICAL ---
ADDENDUM: The patient's flu test was noted to be positive. The patient will be placed on Tamiflu 75 mg p.o. twice a day for 5 days. cc: Cristhian Cartagena MD
--- NOTE | 2019-08-28 07:21 | HISTORY AND PHYSICAL ---
CHIEF COMPLAINT: Shortness of breath for less than 1 day. HISTORY OF PRESENT ILLNESS: Mr. Andrea Lopez is a 69-year-old male who has a history of COPD, coronary artery disease, previous CVA, nephrolithiasis, gastroesophageal reflux disease. He presents to the hospital because of shortness of breath which he has had for less than a day. Denies any wheezing. Admits to having cough which is nonproductive. No hemoptysis. No chest pain. Chest x-ray at time of her presentation did not show any acute findings. The patient will be admitted to the floor now for further management. PAST MEDICAL HISTORY: Notable for COPD, coronary artery disease, previous CVA, nephrolithiasis, right inguinal hernia, gastroesophageal reflux disease, congestive heart failure, hyperlipidemia. PAST SURGICAL HISTORY: He has had cholecystectomy as well as PTCA, colonic polypectomy, kidney stone removal. SOCIAL HISTORY: Denies any history of cigarette smoking, alcohol or drug use. ALLERGIES: He is allergic to lisinopril. FAMILY HISTORY: Positive for cancer. MEDICATIONS: His medications include the following potassium chloride 10 mEq p.o. daily, Lasix 80 mg p.o. at bedtime, DuoNeb 4 times a day, Prozac 10 mg p.o. daily, pravastatin 80 mg p.o. at bedtime, Imdur 30 mg p.o. daily, aspirin 81 once a day, Plavix 75 mg once a day, nitroglycerin 0.4 mg p.r.n., Coreg 25 g p.o. twice a day, Trental 400 mg p.o. 3 times a day, guaifenesin 10 mL q.4 hours p.r.n., Chloraseptic spray as directed, Symbicort 2 puffs twice a day, meclizine 1 tab 3 times a day. REVIEW OF SYSTEMS: Constitutional: Question of fever. PROGRAMS MANAGER: No headaches. Eyes: Blurred vision. Cardiovascular: No chest pain. Gastrointestinal: No nausea, vomiting, diarrhea, constipation. Genitourinary: No dysuria. Dermatology: No skin lesions. Musculoskeletal: He has joint pains. Endocrinology: No thyroid disease or diabetes. Psychiatric: No anxiety or depression. Hematology: No bleeding disorder. PHYSICAL EXAMINATION: VITAL SIGNS: As follows, temperature a 100.2 degrees, pulse 114, respiratory 20, blood pressure 135/66, oxygen saturation 94%. HEENT: Atraumatic, normocephalic. He is anicteric. No oral lesions noted. NECK: No lymphadenopathy or thyromegaly. Supple. CARDIOVASCULAR: S1, S2. RESPIRATORY: Has occasional rhonchi. ABDOMEN: Soft, nontender. No masses felt. EXTREMITIES: No evidence of significant edema. CENTRAL NERVOUS SYSTEM: No obvious focal deficit noted. LABORATORY DATA: WBC is 13.16, hematocrit is 42.8, with a platelet count of 176,000. INR is 0.99. ABG with pH 7.39/40/63/89.5%. Sodium is 139, potassium 4.2, chloride is 103, bicarb 21, BUN is 19, creatinine 1.6. Troponin level is 25. Chest x-ray does not show any acute disease. EKG shows sinus tachycardia with right bundle-branch block. ASSESSMENT AND PLAN: 1. Chronic obstructive pulmonary disease exacerbation. Maintain patient on nebulized bronchodilators, steroids, as well as antibiotics. Send out sputum for Gram stain and culture. Maintain patient on oxygen supplementation. 2. Elevated troponin. Place patient on telemetry and obtain serial cardiac enzymes. Consider to obtain cardiology evaluation if needed. 3. Acute kidney injury. Maintain patient on intravenous fluids. Follow up on renal function. 4. Coronary artery disease. Maintain patient on aspirin, statin, beta charline as well as Imdur. 5. Congestive heart failure. Stable. 6. History of cerebrovascular accident. Continue aspirin as well as statin. Recommend physical therapy. 7. Gastroesophageal reflux disease. Continue proton pump inhibitor. 8. History of nephrolithiasis. Aware, follow-up with Urology in the outpatient. 9. Hyperlipidemia. Continue statin. 10. Deep vein thrombosis prophylaxis. Lovenox. 11. Gastrointestinal prophylaxis. Proton pump inhibitor. cc: Cristhian Cartagena MD
[2019-08-28] MEDS: ASPIRIN PO SCH (10:15)
[2019-08-28] MEDS: TAMIFLU PO SCH ×2 (10:15→20:16)
[2019-08-28] MEDS: PLAVIX PO SCH (10:15)
[2019-08-28] MEDS: PRILOSEC PO SCH (10:15)
[2019-08-28] MEDS: COREG PO SCH ×2 (10:15→20:16)
[2019-08-28] MEDS: IMDUR PO SCH (10:15)
[2019-08-28] MEDS: TRENTAL PO SCH ×3 (10:17→20:16)
--- NOTE | 2019-08-28 13:49 | PROGRESS NOTE ---
DATE: 08/28/2019 INTERVAL HISTORY: No acute events overnight. Mr. Lopez is subjectively feeling better. He states he is breathing better. He still has nonproductive cough. We discussed about influenza. We discussed about risk of developing post influenza pneumonia. I answered all of his questions. He states he takes pentoxifylline for his peripheral artery disease. VITALS: Temperature 98.1 degrees, pulse 86, respiratory 16, blood pressure 129/77, saturating 99% on room air to 2 L nasal cannula. PHYSICAL EXAMINATION: He is not in any acute distress. Oral cavity is moist. He has chronic smoking-related tobacco pigmentation. Air entry bilaterally equal. No wheeze, rhonchi or crackles. S1, S2 normal. No murmur or gallop. Abdomen soft, nontender. No lower extremity edema. He is alert and oriented x3. LABS: No CBC or BMP today in the morning time, previously he did have kidney dysfunction. His troponins 2nd troponin was negative. Blood cultures are in lab. Influenza test was positive for influenza type B. ASSESSMENT AND PLAN: 1. Sepsis and hypoxia on presentation due to influenza type B. Continue patient on oseltamivir. 2. History of chronic obstructive pulmonary disease in mild acute exacerbation. He is not wheezing on my examination so I will stop his antibiotics and intravenous steroids and start him on oral steroids, continue inhaled bronchodilators. He was counseled about post influenza pneumonia. For now I will just watch him without antibiotics. He did receive dose of intravenous Levaquin and azithromycin so far. 3. History of coronary artery disease requiring multiple stents latest being in October 2018 and history of congestive heart failure with preserved ejection fraction. Continue home aspirin, clopidogrel, carvedilol, isosorbide, furosemide. 4. History of peripheral artery disease. Continue home pentoxifylline and pravastatin for hyperlipidemia. 5. Kidney dysfunction. The chronicity of this appears to be present since last few years. He probably has chronic kidney disease stage 2 or stage 3A. I will monitor his basic metabolic panel. 6. Others, his other medical problems including chronic gastroesophageal reflux disease, nephrolithiasis are currently stable, since he is on dual anti-platelet medication I am holding chemical anticoagulation for DVT prophylaxis. 7. Disposition. Monitor him overnight for respiratory status. Plan of care discussed with him, his questions have been answered. cc: Lincoln Marie MD
[2019-08-28] MEDS: PRAVACHOL PO SCH (20:16)
[2019-08-28] MEDS: LASIX PO SCH (20:18)
[2019-08-29] MEDS: DUONEB (A & A) INH SCH ×6 (03:14→23:25)
[2019-08-29 08:24] LABS: AGAP 12; BUN 26 mg/dL (8-22); CALCIUM 9.7 mg/dL (8.8-10.2); CHLORIDE 104 mmol/L (98-107); COSMO 281; CREATININE 1.3 mg/dL (0.7-1.2); ESTIMATED GFR > 60; GLUCOSE 113 mg/dL (70-104); POTASSIUM 4.4 mmol/L (3.5-5.1); SODIUM 138 mmol/L (136-145); TCO2 22 mmol/L (25-35)
[2019-08-29] MEDS ORDERED: LOVENOX SUBQ SCH ×2 (09:00)
[2019-08-29] MEDS: ASPIRIN PO SCH (09:31)
[2019-08-29] MEDS: IMDUR PO SCH (09:31)
[2019-08-29] MEDS: PRILOSEC PO SCH (09:31)
[2019-08-29] MEDS: TRENTAL PO SCH ×3 (09:31→20:23)
[2019-08-29] MEDS: PREDNISONE PO SCH (09:31)
[2019-08-29] MEDS: COREG PO SCH ×2 (09:31→20:23)
[2019-08-29] MEDS: TAMIFLU PO SCH ×2 (09:31→20:23)
[2019-08-29] MEDS: PLAVIX PO SCH (09:31)
[2019-08-29] MEDS ORDERED: LEVAQUIN 500 MG in NS 100 ML IV SCH (15:00)
--- NOTE | 2019-08-29 15:50 | PROGRESS NOTE ---
DATE: 08/29/2019 INTERVAL HISTORY: No acute events overnight. SUBJECTIVE: Mr. Lopez states he is feeling terrible as he has a constant cough, nonproductive, which is causing his abdominal muscles to hurt. He is also wheezing at the time of my evaluation. VITAL SIGNS: Temperature of 98.4 degrees, pulse 84, respiratory rate 19, blood pressure 129/63, saturating 96% on 2 L nasal cannula. PHYSICAL EXAMINATION: General: He is in distress because of cough. HEENT: Oral cavity is moist. Lungs: Air entry bilaterally equal. He has bilateral end-expiratory wheezes and some inspiratory crackles in the infrascapular region. Cardiovascular: S1, S2 normal. Abdomen: Soft, nontender Extremities: No lower extremity edema. Neurologic: He is alert and oriented x3. He is coughing during my encounter. LABS: No CBC today. BMP suggestive of elevated BUN and creatinine. MICROBIOLOGY: No data. IMAGING: No new imaging. ASSESSMENT AND PLAN: 1. Sepsis and hypoxia on presentation due to influenza type B. He has not had any more fever episodes. His oxygen saturations are adequate now. Continue oseltamivir for influenza. 2. Mild acute chronic obstructive pulmonary disease exacerbation. I will give him additional intravenous steroid dose and continue oral steroids, inhaled bronchodilators, and start him on intravenous antibiotics considering his wheezing is worse today. Chest x-ray did not have any evidence of pneumonia. 3. History of coronary artery disease requiring multiple stents, latest being in October 2018, and history of congestive heart failure with preserved ejection fraction, currently not in acute exacerbation. Continue home aspirin, clopidogrel, carvedilol, isosorbide, and furosemide. 4. Others. Continue home pentoxifylline for peripheral artery disease; pravastatin for hyperlipidemia. He does have chronic kidney disease stage 2 or stage 3A which currently appears stable; chronic gastroesophageal reflux disease and nephrolithiasis which are currently stable. DISPOSITION: I will monitor patient inside the hospital as he is still having wheezing and constant cough. I will start him on scheduled dose of antitussive medications. Plan of care discussed with him. His questions have been satisfactorily answered. cc: Lincoln Marie MD
[2019-08-29] MEDS: ROBITUSSIN-DM PO SCH ×2 (17:47→23:15)
[2019-08-29] MEDS ORDERED: SOLU-MEDROL IV ONE (18:00)
[2019-08-29] MEDS: PRAVACHOL PO SCH (20:23)
[2019-08-29] MEDS: LASIX PO SCH (20:23)
[2019-08-30] MEDS: DUONEB (A & A) INH SCH ×6 (03:27→23:16)
[2019-08-30] MEDS: ROBITUSSIN-DM PO SCH ×2 (06:33→11:23)
[2019-08-30] MEDS: PRILOSEC PO SCH (09:20)
[2019-08-30] MEDS: ASPIRIN PO SCH (09:20)
[2019-08-30] MEDS: IMDUR PO SCH (09:20)
[2019-08-30] MEDS: TRENTAL PO SCH ×3 (09:20→21:22)
[2019-08-30] MEDS: PLAVIX PO SCH (09:20)
[2019-08-30] MEDS: COREG PO SCH ×2 (09:20→21:22)
[2019-08-30] MEDS: TAMIFLU PO SCH ×2 (09:20→21:23)
[2019-08-30] MEDS: PREDNISONE PO SCH (09:20)
[2019-08-30] MEDS ORDERED: AYR NASAL SPRAY NAS PRN (12:27)
[2019-08-30] MEDS ORDERED: TUSSIONEX LIQUID PO ONE (12:32)
[2019-08-30] MEDS: NS 1,000 ML IV SCH (13:28)
[2019-08-30] MEDS: TESSALON PO SCH ×2 (13:29→21:22)
[2019-08-30] MEDS: MAXIPIME 1 GM in NS 50 ML IV SCH (13:29)
--- NOTE | 2019-08-30 13:35 | PROVIDER PROGRESS NOTE ---
Progress Note Patient has been seen and examined. A full dictation to follow.
--- NOTE | 2019-08-30 15:45 | Diag Imaging Result Doc PS360 ---
CT THORAX W/O CONTRAST - 08/30/2019 INDICATION: copd/pneumonia COMPARISON: 06/17/2013 FINDINGS: There is no adenopathy. Heart size is normal with no pericardial effusion. There is advanced vascular disease of the aortic arch, great vessels, and coronary arteries. There are cholecystectomy clips. Otherwise upper abdominal images are unremarkable. There is advanced COPD. There is some chronic bronchitis in the lung bases. There is also linear scarring in the lung bases bilaterally. No dense infiltrates. Bones are intact. IMPRESSION: Advanced COPD with pulmonary scarring. Chronic bronchitis. This exam was performed using automated exposure control, adjustment of mA or kV according to patient size, and/or use of iterative reconstruction technique Electronically signed by Parker Avina 08/30/2019 3:42 PM
[2019-08-30] MEDS: MUCOMYST 20% INH SCH ×2 (16:33→19:32)
--- NOTE | 2019-08-30 17:10 | PROGRESS NOTE ---
DATE: 08/30/2019 SUBJECTIVE: The patient states that he has been having a dry hacking cough but otherwise has no other complaints. OBJECTIVE: Vital Signs: Temperature 98 degrees blood pressure 126/87, heart rate 79 respirations 19, O2 saturations 100% on 2 L nasal cannula. General: This is a chronically ill-appearing male lying in bed in no acute distress. Heart: S1, S2 normal. Regular rate and rhythm. Lungs: Equal air entry bilaterally. No wheezing. No rales. Abdomen: Positive bowel sounds. Soft, nontender, nondistended. Extremities: No edema. No cyanosis. Neurologic: The patient is alert and oriented x3. LABS: None. CT of the chest reveals advanced COPD with pulmonary scarring. ASSESSMENT AND PLAN: 1. Acute chronic obstructive pulmonary disease exacerbation with chronic bronchitis. We will continue on the prednisone taper, bronchodilator therapy, antibiotics and supplemental oxygen. 2. Influenza B. Continue on Tamiflu. 3. Hypertension. Continue on the current antihypertensive regimen. 4. History of cerebrovascular accident. Aware. 5. Coronary artery disease. Continue on the current cardiac medications. 6. Deep vein thrombosis prophylaxis, will start the patient on Lovenox. cc: Diana Guerrero MD
[2019-08-30] MEDS: SYMBICORT 80/4.5 MICROGM INHALER INH SCH (19:32)
[2019-08-30] MEDS: LOVENOX SUBQ SCH (21:22)
[2019-08-30] MEDS: LASIX PO SCH (21:22)
[2019-08-30] MEDS: PRAVACHOL PO SCH (21:23)
[2019-08-30] MEDS: TUSSIONEX LIQUID PO SCH (21:23)
--- NOTE | 2019-08-30 23:03 | CONSULTATION ---
DATE OF CONSULTATION: 08/30/2019 REQUESTING PROVIDER: Dr. Diana Guerrero. REASON FOR CONSULTATION: COPD exacerbation and flu. HISTORY OF PRESENT ILLNESS: This is a 69-year-old, -[place] male with a complicated medical history of COPD, asthma, coronary artery disease, diastolic congestive heart failure, hypothyroidism, hyperlipidemia, hypertension, gastroesophageal reflux disease, chronic kidney disease. His previous admission to our facility was from 08/11/2019 to 08/15/2019, with acute hypoxic respiratory failure secondary to COPD exacerbation and acute renal failure. He presented to the ER on 08/27/2019, with acute shortness of breath, cough, and abdominal pain. Initial workup revealed acute hypoxic respiratory failure with COPD exacerbation and influenza B. He has been admitted to the medical floor for further evaluation and management. The patient has been placed on Tamiflu since admission. The patient currently is lying in bed with no acute distress noted. He is on nasal cannula at 2 L and tolerates well. He continues to have a dry hacking cough, which per patient has been improved slightly since admission. He also has some mild sore throat, continued shortness of breath with activities, but no recent fever, chills, nausea, vomiting, bowel habit change, or urination discomfort. PAST MEDICAL HISTORY: 1. COPD and asthma with long-term tobacco use. The patient reports he quit smoking for 8 month, but his ABG carboxyhemoglobin continuously elevated. Pulmonary function tests on 08/11/2019, revealed severe airway obstruction and a diffusion defect suggesting emphysema with concurrent restrictive process. FEV1 49%. 2. Coronary artery disease with myocardial infarction x3, status post 9 stents placed. 3. Diastolic congestive heart failure. 4. Hypothyroidism. 5. Hypertension. 6. Hyperlipidemia. 7. Gastroesophageal reflux disease. 8. History of cerebrovascular accident and transient ischemic accident. 9. Peripheral vascular disease. 10. Chronic kidney disease. 11. Anxiety. 12. Inguinal hernia, followed by Dr. Austin, planning for robotic-assisted repair with mesh. PAST SURGICAL HISTORY: 1. Cardiac stent placement x9. 2. Multiple PTCAs. 3. Uvula removal. 4. Kidney stone removal. 5. Cholecystectomy. 6. Rotator cuff repair. 7. Left shoulder surgery x3. 8. Recent colon polypectomy. SOCIAL HISTORY: Patient lives at home alone. He reports he is a former smoker with about half a pack per day and quit 8 months ago. He has no history of alcohol or illicit drug use. FAMILY HISTORY: Positive for breast cancer and kidney disease. ALLERGIES: Lisinopril. REVIEW OF SYSTEMS: A 10-point review of systems was conducted and the pertinent is listed within the HPI, otherwise noncontributory. PHYSICAL EXAMINATION: Vital Signs: Temperature 98.0, blood pressure 132/80, pulse 71, respiratory rate 19, oxygen saturation 95% on nasal cannula at 2 L. General: Lying in bed with no acute distress noted. HEENT: Atraumatic, normocephalic. Trachea midline. Mucosa pink and moist. Respiratory: Even and unlabored. Symmetric excursion. Auscultation reveals diminished breathing sounds bilaterally, prolonged expiratory phase, and bilaterally diffuse wheezing. Cardiovascular: Regular rate and rhythm. Gastrointestinal: Soft, nontender, nondistended. Normoactive bowel sounds in all 4 quadrants. Extremities: No pedal edema. No cyanosis. No clubbing. Dorsalis pedis 2+ bilaterally. Neurologic: Alert and oriented x4. Speech fluent. Follows commands. LABORATORY DATA: Sodium 138, potassium 4.4, chloride 104, carbon dioxide 22, BUN 26, creatinine 1.3, glucose 114. IMAGING DATA: CT thorax without contrast today revealed advanced COPD, chronic bronchitis in the lung bases, and linear scarring in the lung bases bilaterally. ASSESSMENT: This is a 69-year-old, -[place] male, with a complicated medical history including chronic obstructive pulmonary disease, asthma, coronary artery disease, diastolic congestive heart failure, hypothyroidism, hypertension, hyperlipidemia, gastroesophageal reflux disease, peripheral vascular disease, chronic kidney disease, and anxiety. He has been admitted since 08/28/2019, to the medical floor with influenza B, chronic obstructive pulmonary disease exacerbation, and acute hypoxic respiratory failure. 1. Acute hypoxic respiratory failure. 2. Chronic obstructive pulmonary disease exacerbation with long-term tobacco use. Reported smoking cessation started 8 months ago. 3. Influenza B. 4. Inguinal hernia. PLAN: 1. Continue supplemental oxygen as needed. 2. Continue Tamiflu for 5 days. Continue antibiotics, steroid, and bronchodilators. 3. Follow up with CBC, BMP. Check ABG and chest x-ray if indicated. 4. Continue GI and DVT prophylaxis. 5. Smoking cessation education. 6. Further recommendations pending hospital course. Thank you for the courtesy of this consult. Consult, exam, evaluation and management done by Dr. Joyner. Dictated by DINA Ignacio for Hilda Joyner MD cc: DINA Ignacio MD [facility]
[2019-08-31] MEDS: MAXIPIME 1 GM in NS 50 ML IV SCH ×3 (01:04→23:06)
[2019-08-31] MEDS: NS 1,000 ML IV SCH (02:31)
[2019-08-31] MEDS: DUONEB (A & A) INH SCH ×6 (03:20→23:35)
[2019-08-31] MEDS: MUCOMYST 20% INH SCH ×2 (07:39→19:37)
[2019-08-31] MEDS: SYMBICORT 80/4.5 MICROGM INHALER INH SCH ×2 (07:39→19:38)
[2019-08-31 07:55] LABS: BASO# 0.02 X1000 (0.0-0.2); BASO% 0.4 % (0.0-0.8); HEMATOCRIT 42.3 % (42.0-52.0); HEMOGLOBIN 13.6 g/dL (14.0-18.0); LYMPH# 0.89 X1000 (1.2-3.4); LYMPH% 16.1 % (20.5-51.1); MCH 31.5 PG (27-31); MCHC 32.2 g/dL (33-37); MCV 97.9 FL (81-99); MONO# 0.86 X1000 (0.11-0.59); MONO% 15.5 % (1.7-9.3); MPV 9.5 FL (7.4-10.4); NEUT# 3.77 X1000 (1.4-6.5); PLT 158 X1000 (130-400); RBC 4.32 XMIL (4.7-6.1); RDW 14.9 % (11.5-14.5); WBC 5.54 X1000 (4.8-10.8)
[2019-08-31] MEDS: TRENTAL PO SCH ×3 (08:22→23:06)
[2019-08-31] MEDS: PRILOSEC PO SCH (08:22)
[2019-08-31] MEDS: TESSALON PO SCH ×3 (08:22→23:06)
[2019-08-31] MEDS: PLAVIX PO SCH (08:22)
[2019-08-31] MEDS: TAMIFLU PO SCH ×2 (08:22→23:06)
[2019-08-31] MEDS: ASPIRIN PO SCH (08:23)
[2019-08-31] MEDS: IMDUR PO SCH (08:23)
[2019-08-31] MEDS: COREG PO SCH ×2 (08:23→23:06)
[2019-08-31] MEDS: TUSSIONEX LIQUID PO SCH ×2 (08:23→23:06)
[2019-08-31] MEDS: PREDNISONE PO SCH (08:23)
[2019-08-31 08:37] LABS: AGAP 9; BUN 36 mg/dL (8-22); CALCIUM 9.4 mg/dL (8.8-10.2); CHLORIDE 98 mmol/L (98-107); COSMO 276; CREATININE 1.4 mg/dL (0.7-1.2); ESTIMATED GFR > 60; GLUCOSE 97 mg/dL (70-104); SODIUM 134 mmol/L (136-145); TCO2 27 mmol/L (25-35)
--- NOTE | 2019-08-31 13:45 | PROVIDER PROGRESS NOTE ---
Progress Note Dr. Joyner Progress Note/Pulmonary and or critical care We appreciated progress of care, Complications, change in diagnosis, and instructions to patient under direct supervision of Dr. Joyner. Subjective: We note the level of consciousness, bed (chair) position, family presence (if any), level of lethargy, feeling of symptoms, and changes from baseline condition/symptom. The patient is lying in bed with no acute distress noted. He states he is feeling better. He is on NC at 1L. He still has cough with saliva-type production at times. He complains of some RLQ tenderness with cough secondary to the inguinal hernia. He reports occasionally he uses chewable tobacco or smokes without inhalation because of the strong cravings at home, but he has been trying really hard to completely quit it. Objective: Vital Signs: We reviewed EMR current values for Pulse rate, Blood pressure, Pulse rate, respiratory rate and Pulse oximetry. Also noted other values and trends if present (e.g. I/O, CVP). Vital Signs 08/30/19 16:00 08/30/19 19:31 08/30/19 20:00 Temperature 97.5 F L 97.9 F Pulse Rate 79 78 73 Respiratory Rate 19 19 Blood Pressure 126/87 130/80 O2 Sat by Pulse Oximetry 100 97 99 08/31/19 00:00 08/31/19 04:00 08/31/19 07:29 Temperature 98.4 F 98.1 F 97.7 F Pulse Rate 77 74 74 Respiratory Rate 18 Blood Pressure 120/81 150/90 138/78 O2 Sat by Pulse Oximetry 100 99 98 08/31/19 07:43 08/31/19 11:31 08/31/19 11:56 Temperature 97.6 F Pulse Rate 76 73 83 Respiratory Rate 15 15 18 Blood Pressure 119/75 O2 Sat by Pulse Oximetry 99 96 100 Intake & Output 08/30/19 08/31/19 08/31/19 19:59 07:59 19:59 Intake Total 480 / 1280 800 / 1280 50 / 50 Output Total 400 / 1450 1050 / 1450 1000 / 1000 Balance 80 / -170 -250 / -170 -950 / -950 Intake: Intake, IV Amount 750 / 750 Intake, IVPB 50 / 50 50 / 50 Intake, Oral Amount 480 / 480 Output: Output, Urine Void Amount 400 / 1450 1050 / 1450 1000 / 1000 Other: Percent of Meal Consumed 75% NG/Feeding Tube Residual Check No & Amount Number of Bowel Movements 0 Physical Examination: General: Lying in bed with no acute distress noted. HEENT: Atraumatic. Normocephalic. Mucosa pink and moist. Chest: Kamille and unlabored. Auscultation reveals rhonchi on YENNY, which is cleared up by cough. CVS: S1 S2. Abdomen: Non-tender. Soft. Mildly distended. Bowel sounds present. Extremities: BLE puffy. No cyanosis. Clubbing noted. Neuro: Not answering questions. Not following simple commands. Labs and Radiology: Reviewed available labs and radiology values available at time of EMR review. Laboratory Results 08/31/19 08/31/19 07:27 07:27 WBC 5.54 RBC 4.32 L Hgb 13.6 L Hct 42.3 MCV 97.9 MCH 31.5 H MCHC 32.2 L RDW Std Deviation 14.9 H Plt Count 158 MPV 9.5 Immature Gran % (Auto) 0.0 Neut % (Auto) 68.0 Lymph % (Auto) 16.1 L [place] % (Auto) 15.5 H Eos % (Auto) 0.0 Baso % (Auto) 0.4 Immature Gran # (Auto) 0.00 Neut # (Auto) 3.77 Lymph # (Auto) 0.89 L [place] # (Auto) 0.86 H Eos # (Auto) 0.00 Baso # (Auto) 0.02 Sodium 134 L Potassium 4.0 Chloride 98 Carbon Dioxide 27 Anion Gap 9 BUN 36 H Creatinine 1.4 H Estimated GFR/1.73 m2 > 60 BUN/Creatinine Ratio 26 Glucose 97 Calculated Osmolality [address] Joyner evaluated and additional note below. Evaluation time in minutes: 10 minutes. Assessment: Acute hypoxemic respiratory failure. COPD exacerbation. Influenza B. Inguinal hernia. Plan: Continue current treatment and supportive care per admitting and other teams on the case. Tamiflu. Antibiotics (Cefepime). Prednisone. Bronchodilators. Appropriate DVT and GI prophylaxis. Input was appreciated from Admitting MD and other teams on the case.
[2019-08-31] MEDS: LOVENOX SUBQ SCH (15:42)
--- NOTE | 2019-08-31 21:02 | PROGRESS NOTE ---
DATE: 08/31/2019 SUBJECTIVE: The patient states that he feels much better today. He states that he is not coughing as much. He is currently on 1 L of supplemental oxygen. OBJECTIVE: Vital Signs: Temperature 97.8, blood pressure 136/81, heart rate 78, respirations 22, O2 saturation 95% on 1 L nasal cannula. General: This is a [id number] elderly male lying in bed in no acute distress. Heart: S1, S2 normal. Regular rate and rhythm. Lungs: Clear to auscultation bilaterally. Abdomen: Positive bowel sounds. Soft, nontender, nondistended. Extremities: No edema, no cyanosis. Neurologic: The patient is alert and oriented x4. LABORATORY DATA: Reviewed. ASSESSMENT AND PLAN: 1. Acute chronic obstructive pulmonary disease exacerbation with chronic bronchitis. Slowly improving. We will continue to try and wean the patient off of supplemental oxygen. Continue on the current treatment regimen. Pulmonary is following. 2. Influenza B. Today is day 4 of Tamiflu therapy. Continue on the current regimen. 3. Hypertension. Stable. 4. History of cerebrovascular accident. Continue on the current medications. 5. Coronary artery disease. Stable. 6. Deep vein thrombosis prophylaxis. Continue on Lovenox. 7. Continue with physical therapy. cc: Diana Guerrero MD
[2019-08-31] MEDS: LASIX PO SCH (23:06)
[2019-08-31] MEDS: PRAVACHOL PO SCH (23:06)
[2019-09-01] MEDS: DUONEB (A & A) INH SCH ×6 (03:43→23:14)
[2019-09-01] MEDS: MAXIPIME 1 GM in NS 50 ML IV SCH ×2 (05:44→13:03)
[2019-09-01] MEDS: NS 1,000 ML IV SCH ×3 (06:31→18:49)
[2019-09-01 08:01] LABS: BASO# 0.04 X1000 (0.0-0.2); BASO% 0.9 % (0.0-0.8); HEMATOCRIT 42.5 % (42.0-52.0); HEMOGLOBIN 13.7 g/dL (14.0-18.0); LYMPH# 1.54 X1000 (1.2-3.4); LYMPH% 34.8 % (20.5-51.1); MCH 31.2 PG (27-31); MCHC 32.2 g/dL (33-37); MCV 96.8 FL (81-99); MONO# 0.86 X1000 (0.11-0.59); MONO% 19.5 % (1.7-9.3); MPV 10.2 FL (7.4-10.4); NEUT# 1.98 X1000 (1.4-6.5); NEUT% 44.8 % (42.2-75.2); PLT 171 X1000 (130-400); RBC 4.39 XMIL (4.7-6.1); RDW 14.9 % (11.5-14.5); WBC 4.42 X1000 (4.8-10.8)
[2019-09-01] MEDS: SYMBICORT 80/4.5 MICROGM INHALER INH SCH ×2 (08:22→19:53)
[2019-09-01] MEDS: MUCOMYST 20% INH SCH ×2 (08:22→19:35)
[2019-09-01 08:34] LABS: AGAP 12; BUN 38 mg/dL (8-22); CALCIUM 9.6 mg/dL (8.8-10.2); CHLORIDE 98 mmol/L (98-107); COSMO 281; CREATININE 1.4 mg/dL (0.7-1.2); ESTIMATED GFR > 60; GLUCOSE 107 mg/dL (70-104); POTASSIUM 3.9 mmol/L (3.5-5.1); SODIUM 136 mmol/L (136-145); TCO2 26 mmol/L (25-35)
[2019-09-01] MEDS: TAMIFLU PO SCH ×2 (09:52→20:58)
[2019-09-01] MEDS: ASPIRIN PO SCH (09:52)
[2019-09-01] MEDS: TRENTAL PO SCH ×3 (09:52→20:57)
[2019-09-01] MEDS: COREG PO SCH ×2 (09:52→20:58)
[2019-09-01] MEDS: TESSALON PO SCH ×3 (09:52→20:58)
[2019-09-01] MEDS: PLAVIX PO SCH (09:52)
[2019-09-01] MEDS: IMDUR PO SCH (09:52)
[2019-09-01] MEDS: PRILOSEC PO SCH (09:52)
[2019-09-01] MEDS: TUSSIONEX LIQUID PO SCH ×2 (10:02→20:57)
--- NOTE | 2019-09-01 14:53 | PROGRESS NOTE ---
DATE: 09/01/2019 SUBJECTIVE: The patient states that he has a sore throat this morning. He states that his coughing is a little bit better. No acute events noted overnight. OBJECTIVE: Vital Signs: Temperature 98.1 degrees, blood pressure 128/77, heart rate 80, respirations 16, O2 saturation is 94% on room air. General: This is a chronically ill-appearing, elderly male lying in bed, in no acute distress. Heart: S1, S2 normal. Regular rate and rhythm. Lungs: Clear to auscultation bilaterally. Abdomen: Positive bowel sounds. Soft, nontender, nondistended. Extremities: No edema, no cyanosis. Neurologic: The patient is alert and oriented x4. Labs: White blood cell count 4.4, hemoglobin 13, hematocrit 42, platelets 171,000. Sodium 136, potassium 3.9, chloride 98, CO2 of 26, BUN 38, creatinine 1.4, glucose 107. ASSESSMENT AND PLAN: 1. Acute chronic obstructive pulmonary disease exacerbation with chronic bronchitis. Slowly improving. Continue on the current treatment regimen. 2. Influenza B. Continue on Tamiflu. 3. Hypertension. Stable. 4. History of cerebrovascular accident. Continue on the current medications. 5. Coronary artery disease. Stable. 6. Deep vein thrombosis prophylaxis. Continue on Lovenox. 7. Disposition. We will plan to discharge the patient home tomorrow. Continue with physical therapy. cc: Diana Guerrero MD MTDD
--- NOTE | 2019-09-01 15:03 | PROVIDER PROGRESS NOTE ---
Progress Note Dr. Joyner Progress Note/Pulmonary and or critical care We appreciated progress of care, Complications, change in diagnosis, and instructions to patient under direct supervision of Dr. Joyner. Subjective: We note the level of consciousness, bed (chair) position, family presence (if any), level of lethargy, feeling of symptoms, and changes from baseline condition/symptom. The patient is lying in bed with no acute distress noted. He is on room air and tolerates well. He still has productive cough at times. He states that he has been coughing more stuff up. He still complains of some RLQ tenderness secondary to the inguinal hernia. He apparently has a hernia repair scheduled tomorrow with Dr. Austin in this facility. Objective: Vital Signs: We reviewed EMR current values for Pulse rate, Blood pressure, Pulse rate, respiratory rate and Pulse oximetry. Also noted other values and trends if present (e.g. I/O, CVP). Vital Signs 08/31/19 16:00 08/31/19 16:15 08/31/19 19:38 Temperature 97.9 F Pulse Rate 80 79 70 Respiratory Rate 18 14 22 Blood Pressure 132/79 O2 Sat by Pulse Oximetry 96 95 95 08/31/19 20:00 09/01/19 04:00 09/01/19 08:00 Temperature 97.8 F 98.0 F 97.9 F Pulse Rate 78 79 75 Respiratory Rate 18 Blood Pressure 136/81 146/97 137/85 O2 Sat by Pulse Oximetry 95 95 98 09/01/19 08:25 09/01/19 12:00 09/01/19 12:08 Temperature 98.1 F Pulse Rate 78 80 78 Respiratory Rate 15 16 14 Blood Pressure 128/77 O2 Sat by Pulse Oximetry 98 92 L 94 L Intake & Output 08/31/19 09/01/19 09/01/19 19:59 07:59 19:59 Intake Total 530 / 580 50 / 580 600 / 600 Output Total 1000 / 1000 750 / 750 Balance -470 / -420 50 / -420 -150 / -150 Intake: Intake, IV Amount 50 / 50 Intake, IVPB 50 / 50 Intake, Oral Amount 480 / 480 600 / 600 Output: Output, Urine Void Amount 1000 / 1000 750 / 750 Other: Percent of Meal Consumed 100% 100% Number of Bowel Movements 0 Physical Examination: General: Lying in bed with no acute distress noted. HEENT: Atraumatic. Normocephalic. Mucosa pink and moist. Chest: Kamille and unlabored. Symmetrical excursion. Auscultation reveals bilateral expiratory wheezing with left side worse than the right side and prolonged expiratory phase. CVS: Regular rate and rhythm with no murmur noted. Abdomen: RLQ tenderness. Soft. Mildly distended. Bowel sounds present. Extremities: No pedal edema. No cyanosis. No clubbing. Neuro: A/O x3. Speech fluent. Follow commands. Labs and Radiology: Reviewed available labs and radiology values available at time of EMR review. Laboratory Results 09/01/19 09/01/19 07:15 07:15 WBC 4.42 L RBC 4.39 L Hgb 13.7 L Hct 42.5 MCV 96.8 MCH 31.2 H MCHC 32.2 L RDW Std Deviation 14.9 H Plt Count 171 MPV 10.2 Immature Gran % (Auto) 0.0 Neut % (Auto) 44.8 Lymph % (Auto) 34.8 [place] % (Auto) 19.5 H Eos % (Auto) 0.0 Baso % (Auto) 0.9 H Immature Gran # (Auto) 0.00 Neut # (Auto) 1.98 Lymph # (Auto) 1.54 [place] # (Auto) 0.86 H Eos # (Auto) 0.00 Baso # (Auto) 0.04 Sodium 136 Potassium 3.9 Chloride 98 Carbon Dioxide 26 Anion Gap 12 BUN 38 H Creatinine 1.4 H Estimated GFR/1.73 m2 > 60 BUN/Creatinine Ratio 27 Glucose 107 H Calculated Osmolality [address] Joyner evaluated and additional note below. Evaluation time in minutes: 10 minutes. Assessment: Acute hypoxemic respiratory failure. COPD exacerbation. Influenza B. Inguinal hernia. Plan: Continue current treatment and supportive care per admitting and other teams on the case. Tamiflu. Today is day 4. Antibiotics (Cefepime). Bronchodilators. Dr. Austin consulted for inguinal hernia. The patient does have a moderate pulmonary risk for hernia repair, but is clear for hernia repair per Dr. Joyner. The patient, otherwise, needs cardiac evaluation before surgery. Appropriate DVT and GI prophylaxis. Input was appreciated from Admitting MD and other teams on the case. Dr. Joyner did the evaluation, examination and management. MONITOR TECH did the scribing/dictation for Dr. Joyner according to his directions.
[2019-09-01] MEDS: LOVENOX SUBQ SCH (16:41)
[2019-09-01] MEDS: PRAVACHOL PO SCH (20:58)
[2019-09-01] MEDS: LASIX PO SCH (20:58)
[2019-09-02] MEDS: MAXIPIME 1 GM in NS 50 ML IV SCH (00:27)
[2019-09-02] MEDS: DUONEB (A & A) INH SCH ×3 (03:44→11:04)
[2019-09-02] MEDS: NS 1,000 ML IV SCH (06:51)
[2019-09-02] MEDS: SYMBICORT 80/4.5 MICROGM INHALER INH SCH (07:30)
[2019-09-02] MEDS: MUCOMYST 20% INH SCH (07:31)
[2019-09-02 08:21] LABS: AGAP 10; BUN 33 mg/dL (8-22); CALCIUM 9.2 mg/dL (8.8-10.2); CHLORIDE 100 mmol/L (98-107); COSMO 283; CREATININE 1.3 mg/dL (0.7-1.2); ESTIMATED GFR > 60; GLUCOSE 98 mg/dL (70-104); POTASSIUM 3.8 mmol/L (3.5-5.1); SODIUM 138 mmol/L (136-145); TCO2 28 mmol/L (25-35)
[2019-09-02] MEDS: PLAVIX PO SCH (09:17)
[2019-09-02] MEDS: COREG PO SCH (09:17)
[2019-09-02] MEDS: IMDUR PO SCH (09:17)
[2019-09-02] MEDS: TUSSIONEX LIQUID PO SCH (09:17)
[2019-09-02] MEDS: PRILOSEC PO SCH (09:18)
[2019-09-02] MEDS: TESSALON PO SCH (09:18)
[2019-09-02] MEDS: TAMIFLU PO SCH (09:18)
[2019-09-02] MEDS: ASPIRIN PO SCH (09:18)
[2019-09-02] MEDS: TRENTAL PO SCH (09:18)
[2019-09-02 12:21] VITALS: BP 112/91
--- NOTE | 2019-09-02 13:40 | PROGRESS NOTE ---
DATE: 09/02/2019 Mr. Andrea Lopez is been scheduled several times through my office for a symptomatic inguinal hernia repair. He has had to be canceled several times because of pneumonia or COPD exacerbation. He was hospitalized 5 days ago by our hospitalists again for breathing issues. He has improved with our treatment. Plans are to send him home and we will reschedule him as an outpatient for elective inguinal hernia repair. cc: Tangela Austin MD
--- NOTE | 2019-09-07 09:52 | DISCHARGE SUMMARY ---
ADMISSION DATE: 08/28/2019 DISCHARGE DATE: 09/02/2019 FINAL DISCHARGE DIAGNOSES: 1. Acute chronic obstructive pulmonary disease exacerbation with chronic bronchitis. 2. Influenza B. 3. Hypertension. 4. History of cerebrovascular accident. 5. Coronary artery disease. 6. Inguinal hernia CONSULTATIONS: 1. Pulmonary consultation with Dr. Joyner. IMAGIN. Chest x-ray performed on 08/27/2019, which revealed no acute disease. 2. Chest CT performed on 08/30/2019, which revealed advanced COPD with pulmonary scarring and chronic bronchitis. HOSPITAL COURSE: Mr. Lopez is a 69-year-old male with a history of COPD who presented to the ER with shortness of breath and cough. On admission, a chest x-ray was done that revealed COPD. Also, the patient was screened for influenza and came back positive for influenza B. The patient was admitted to the hospitalist service and started on antibiotics, IV fluids, and bronchodilator therapy as well as antibiotic therapy. Slowly over the course of the hospitalization the patient's respiratory status improved. A chest CT was also done that confirmed advanced COPD with pulmonary scarring. The patient slowly improved. The patient was also seen by Dr. Austin who is scheduled to do surgery on the patient. The on the day of discharge. However, given that the patient was just hospitalized for COPD, he stated that he would reschedule the procedure with the patient as outpatient. DISCHARGE MEDICATIONS: 1. Tussionex 5 mL oral every 12 hours p.r.n. for cough. 2. Potassium chloride 10 mEq oral daily. 3. Lasix 80 mg p.o. at bedtime. 4. DuoNeb 1 dose 4 times a day. 5. Pravachol 80 mg oral at bedtime. 6. Prilosec 40 mg p.o. daily. 7. Imdur 30 mg oral daily. 8. Plavix 75 mg oral daily. 9. Aspirin 81 mg oral daily. 10. Nitrostat 0.4 mg sublingual as needed. 11. Trental 400 mg oral 3 times a day. 12. Coreg 25 mg oral twice a day. 13. Robitussin DM p.r.n. for cough. 14. Meclizine 1 tablet 3 times a day p.r.n. 15. Symbicort 80/4.5 mcg 2 puffs inhaled twice a day. DISCHARGE DIET: Low-sodium, low-cholesterol diet. ACTIVITY: As tolerated. FOLLOWUP INSTRUCTIONS: The patient will need to follow up with Dr. Austin as scheduled by his clinic to discuss the elective inguinal hernia repair surgery. The patient will also need to follow up with Dr. Joyner as scheduled by his clinic. The patient will need to follow up with Dr. Shahzad Fernando in 1 week. cc: MD Shahzad Perales MD [facility]
== END 2019-09-02 13:37 | disposition home health service (06) | DRG 191 ==
LOC: ED 19:44 → 3N 08-28 05:17 → SUATTDRO 08-28 05:17
PROVIDERS: ATTEND Internal Medicine